=== PATIENT | female | born 1970 | race Caucasian/White ===

== ENCOUNTER → 2016-10-30 | Outpatient (CLI) | payer BC ==
[~2016-10-30] MED LIST: LORT5TAB PO; MOTRIN PO
--- NOTE | 2016-10-30 13:10 | REPMRS ---
Patient History The patient states she has not had a clinical breast exam in over a year. Family history of breast cancer in mother at age 57 and breast cancer in mother at age 60. Silicone gel implants in both breasts, 2010.Patient has had a 30 pound weight gain due to lupus. Digital Mammo Screening Bilat: October 30, 2016 - Exam #: [id number] Bilateral CC and MLO view(s) were taken. Technologist: Sagrario Frazier, Technologist Prior study comparison: 2015, digital bilateral screening mammo, performed at [facility]. January 03, 2013, bilateral digital mammo screening bilat performed at [facility]. April 20, 2009, bilateral digital mammo screening bilat performed at [facility]. FINDINGS: There are scattered fibroglandular densities. There has been no change in the appearance of the mammogram from the prior studies. There is a mild amount of residual fibroglandular tissue which is fairly symmetric. There is no interval development of dominant mass, architectural distortion, or clustered microcalcification suggestive of malignancy. ASSESSMENT: BI-RADS/ACR category 1 mammogram. Negative. Recommendation Routine screening mammogram in 1 year (for women over age 40). This mammogram was interpreted with the aid of an FDA-approved computer-aided dectection system. Electronically Signed By: Rolly Dempsey MD 10/30/16 [id number]
== END ==
LOC: M RAD 11:48
PROVIDERS: ATTEND Nurse Practitioner Family
DX: Z12.31 Encounter for screening mammogram for malignant neoplasm of breast (principal)

== ENCOUNTER 2016-12-28 07:32 | Emergency (ER) | payer BC ==
[~2016-12-28] VITALS: Ht 149.9 cm; Wt 69.1 kg
[2016-12-28] MEDS ORDERED: FAMOTIDINE INJ 20MG/2ML VIAL (S0028) IVP ONE (08:00)
[2016-12-28] MEDS ORDERED: dexameTHASONE 20 MG/5 ML VIAL (J1100) IV ONE (08:00)
[2016-12-28] MEDS ORDERED: diphenhydrAMINE INJ 50MG/ML VIAL (J1200) IV ONE ×2 (08:00→12:30)
[2016-12-28] MEDS ORDERED: ONDANSETRON 4MG/2ML VIAL (J2405) IV ONE ×2 (08:00→12:30)
[2016-12-28 08:14] LABS: BASO # 0.1 10^3/uL (0.0-0.2); BASO % 0.9 % (0.0-1.0); EOS # 0.2 10^3/uL (0.0-0.50); EOS % 2.9 % (0.0-3.0); IMMATURE GRANULOCYTE % 0.3 % (0-0); LYMPH # 2.1 10^3/uL (1.5-4.5); LYMPH % 29.6 % (24.0-44.0); MEAN CORPUSCULAR HEMOGLOBIN 27.7 pg (27.0-33.0); MEAN CORPUSCULAR HGB CONC 32.8 g/dl (32.0-36.5); MEAN CORPUSCULAR VOLUME 84.4 fl (80.0-96.0); MONO # 0.5 10^3/uL (0.0-0.8); MONO % 6.6 % (0.0-5.0); NEUTROPHILS # 4.1 10^3/uL (1.8-7.7); NEUTROPHILS % 59.7 % (36.0-66.0); PLATELET COUNT, AUTOMATED 239 10^3/uL (150-450); WHITE BLOOD COUNT 6.9 10^3/uL (4.0-10.0)
[2016-12-28 08:28] LABS: ALBUMIN 3.6 GM/DL (3.2-5.2); ALKALINE PHOSPHATASE 55 U/L (45-117); ALT/SGPT 33 U/L (12-78); ANION GAP 8 MEQ/L (8-16); AST/SGOT 21 U/L (15-37); BILIRUBIN,DIRECT < 0.1 MG/DL (0.0-0.2); BILIRUBIN,TOTAL 0.2 MG/DL (0.2-1.0); BLOOD UREA NITROGEN 15 MG/DL (7-18); CALCIUM LEVEL 8.8 MG/DL (8.5-10.1); CARBON DIOXIDE LEVEL 27 MEQ/L (21-32); CHLORIDE LEVEL 104 MEQ/L (98-107); COMPLEMENT C4 23.2 MG/DL (10-40); CREATININE FOR GFR 1.05 MG/DL (0.55-1.02); GLOMERULAR FILTRATION RATE > 60.0 (>58); GLUCOSE, FASTING 105 MG/DL (70-105); POTASSIUM SERUM 3.5 MEQ/L (3.5-5.1); SODIUM LEVEL 139 MEQ/L (136-145); T UPTAKE 34 % (30-39); THYROXINE (T4) 11.7 UG/DL (4.5-12.0); TOTAL PROTEIN 7.2 GM/DL (6.4-8.2)
[2016-12-28 08:30] LABS: ADD MORPHOLOGY? YES
[2016-12-28 09:28] LABS: ERYTHROCYTE SEDIMENTATION RATE 7 mm/hr (0-20)
[2016-12-28] MEDS ORDERED: FIORICET TAB PO ONE (12:15)
[2016-12-28 14:45] VITALS: BP 111/64
== END 2016-12-28 14:48 | disposition home or self-care (01) ==
LOC: M ED 07:32
DX: T78.3XXA Angioneurotic edema, initial encounter (principal); M32.9 Systemic lupus erythematosus, unspecified; Z79.899 Other long term (current) drug therapy; Z88.1 Allergy status to other antibiotic agents; Z88.5 Allergy status to narcotic agent; Z91.040 Latex allergy status; Z88.8 Allergy status to other drugs, medicaments and biological substances; Z82.49 Family history of ischemic heart disease and other diseases of the circulatory system
CPT/HCPCS: 36415; 80048; 80076; 84436; 84443; 84479; 85025; 85652; 86140; 86160; 96374; 96375; 99285; J1100; J1200; J2405

== ENCOUNTER → 2017-03-28 | Outpatient (CLI) | payer BC ==
[2017-03-28 09:56] LABS: ANION GAP 7 MEQ/L (8-16); BLOOD UREA NITROGEN 14 MG/DL (7-18); CALCIUM LEVEL 8.2 MG/DL (8.5-10.1); CARBON DIOXIDE LEVEL 27 MEQ/L (21-32); CHLORIDE LEVEL 105 MEQ/L (98-107); CREATININE FOR GFR 1.03 MG/DL (0.55-1.02); GLOMERULAR FILTRATION RATE > 60.0 (>58); GLUCOSE, FASTING 82 MG/DL (70-105); SODIUM LEVEL 139 MEQ/L (136-145)
== END ==
LOC: M WUC 08:21
DX: R60.0 Localized edema (principal)
CPT/HCPCS: 80048

== ENCOUNTER 2017-04-05 05:19 | Observation (INO) | payer BC ==
[2017-04-05 05:59] LABS: BASO % 0.4 % (0.0-1.0); EOS % 0.3 % (0.0-3.0); HEMATOCRIT 43.4 % (36.0-47.0); HEMOGLOBIN 14.9 g/dl (12.0-16.0); IMMATURE GRANULOCYTE % 0.4 % (0-0); LYMPH # 1.7 10^3/uL (1.5-4.5); LYMPH % 18.7 % (24.0-44.0); MEAN CORPUSCULAR HEMOGLOBIN 27.2 pg (27.0-33.0); MEAN CORPUSCULAR HGB CONC 34.3 g/dl (32.0-36.5); MEAN CORPUSCULAR VOLUME 79.2 fl (80.0-96.0); MONO # 0.5 10^3/uL (0.0-0.8); MONO % 4.9 % (0.0-5.0); NEUTROPHILS # 6.9 10^3/uL (1.8-7.7); NEUTROPHILS % 75.3 % (36.0-66.0); PLATELET COUNT, AUTOMATED 292 10^3/uL (150-450); RED BLOOD COUNT 5.48 10^6/uL (4.00-5.40); RED CELL DISTRIBUTION WIDTH 11.9 % (11.5-14.5); WHITE BLOOD COUNT 9.1 10^3/uL (4.0-10.0)
[2017-04-05 06:15] LABS: INR 0.96; PARTIAL THROMBOPLASTIN TIME 25.6 SECONDS (26.8-37.9); PROTHROMBIN TIME 12.9 SECONDS (12.4-14.5)
[2017-04-05 06:20] LABS: PHOSPHORUS LEVEL 1.7 MG/DL (2.5-4.9)
[2017-04-05 06:20] LABS: MAGNESIUM LEVEL 2.4 MG/DL (1.8-2.4)
[2017-04-05 06:26] LABS: ANION GAP 11 MEQ/L (8-16); BLOOD UREA NITROGEN 11 MG/DL (7-18); CALCIUM LEVEL 9.9 MG/DL (8.5-10.1); CARBON DIOXIDE LEVEL 27 MEQ/L (21-32); CHLORIDE LEVEL 100 MEQ/L (98-107); CPK CREATINE PHOSPHOKINASE 220 U/L (26-192); FREE T4 1.21 NG/DL (0.76-1.46); GLOMERULAR FILTRATION RATE > 60.0 (>58); GLUCOSE, FASTING 114 MG/DL (70-105); MB/CK RELATIVE INDEX 0.45 (< OR =4); POTASSIUM SERUM 3.3 MEQ/L (3.5-5.1); SODIUM LEVEL 138 MEQ/L (136-145); TROPONIN I < 0.02 NG/ML (< 0.10)
[2017-04-05] MEDS ORDERED: ONDANSETRON 4MG/2ML VIAL (J2405) As Ordered ×2 (06:36)
[2017-04-05] MEDS: POTASSIUM CHLORIDE 10 MEQ SR TABLET PO ×4 (06:45→18:48)
[2017-04-05] MEDS: ONDANSETRON 4MG/2ML VIAL (J2405) IV ×2 (06:45)
[2017-04-05] MEDS: NEUTRA-PHOS 1.25 GM PACKET PO ×2 (06:45)
[2017-04-05] MEDS: MORPHINE 4 MG/ML 1ML SYRINGE IV ×2 (06:45)
[2017-04-05] MEDS ORDERED: ISOVUE-370 76% 100ML VIAL (Q9967) As Ordered ×2 (06:47)
[2017-04-05] MEDS: NS 1,000 ML IV ×6 (07:21→20:30)
[2017-04-05] MEDS: LORazepam 2 MG/ML VIAL (J2060) IV ×2 (07:21)
[2017-04-05] MEDS ORDERED: GI COCKTAIL 50ML BTL(HYOSCYAMINE/MAALOX/LIDOCAINE VISCOUS)(1:3:1) PO ×2 (08:15)
[2017-04-05] MEDS ORDERED: ACETAMINOPHEN TAB 650MG DOSE (2X325MG) PO ×2 (08:15)
[2017-04-05] MEDS ORDERED: ALPRAZolam 0.25 MG TAB PO ×2 (08:15)
[2017-04-05] MEDS ORDERED: ONDANSETRON 4MG/2ML VIAL (J2405) IV ×2 (08:15)
[2017-04-05] MEDS ORDERED: BISACODYL 5 MG TAB PO ×2 (08:15)
[2017-04-05] MEDS ORDERED: MORPHINE 2 MG/ML 1ML SYRINGE IV ×2 (08:15)
[2017-04-05 08:19] LABS: C REACTIVE PROTEIN QUANTITATIV < 0.30 MG/DL (0.00-0.30)
[2017-04-05 08:34] LABS: COMPLEMENT C3 108 MG/DL (90-180); COMPLEMENT C4 25.4 MG/DL (10-40)
[2017-04-05 08:47] LABS: ERYTHROCYTE SEDIMENTATION RATE 5 mm/hr (0-20)
[2017-04-05] MEDS ORDERED: OMEPRAZOLE 20 MG CAP PO ×2 (09:00)
[2017-04-05] MEDS: PANTOPRAZOLE 40MG TAB (PROTONIX) PO ×2 (09:10)
[2017-04-05] MEDS: GI COCKTAIL 50ML BTL(HYOSCYAMINE/MAALOX/LIDOCAINE VISCOUS)(1:3:1) PO ×2 (09:10)
[2017-04-05] MEDS: predniSONE 20 MG TAB PO ×2 (09:10)
[2017-04-05] MEDS: KETOROLAC 30 MG/ML VIAL (J1885) IV ×2 (09:11)
[2017-04-05] MEDS: FERROUS SULFATE 325MG TAB PO ×2 (10:18)
[2017-04-05] MEDS: ACETAMINOPHEN 500 MG TAB PO ×6 (10:18→23:31)
[2017-04-05] MEDS: SERTRALINE 100 MG TAB PO ×2 (10:18)
[2017-04-05] MEDS: HYDROXYCHLOROQUINE 200 MG TAB PO ×2 (10:19)
[2017-04-05] MEDS ORDERED: NITROGLYCERIN 0.4 MG SUBL TABLET SL ×2 (11:00)
[2017-04-05] MEDS ORDERED: IPRATROPIUM 0.5MG/ALBUTEROL 2.5MG INH SOL UD 3ML (DUONEB)(J7620) NEB ×2 (11:00)
[2017-04-05] MEDS: NITROGLYCERIN 0.4 MG SUBL TABLET SL ×2 (11:16)
[2017-04-05] MEDS: IPRATROPIUM 0.5MG/ALBUTEROL 2.5MG INH SOL UD 3ML (DUONEB)(J7620) NEB ×2 (11:46)
[2017-04-05] MEDS: SUCRALFATE SUSP 1GM/10ML UD PO ×6 (12:00→21:00)
[2017-04-05 12:31] LABS: CPK CREATINE PHOSPHOKINASE 164 U/L (26-192); TROPONIN I < 0.02 NG/ML (< 0.10)
[2017-04-05] MEDS ORDERED: KETOROLAC 30 MG/ML VIAL (J1885) IV ×2 (15:00)
[2017-04-05 18:14] LABS: POTASSIUM SERUM 3.4 MEQ/L (3.5-5.1)
[2017-04-05 18:23] LABS: CPK CREATINE PHOSPHOKINASE 145 U/L (26-192); MB/CK RELATIVE INDEX 0.68 (< OR =4); TROPONIN I < 0.02 NG/ML (< 0.10)
[2017-04-05] MEDS: traZODone 50 MG TAB PO ×2 (23:31)
[2017-04-06 00:36] LABS: CPK CREATINE PHOSPHOKINASE 132 U/L (26-192); MB/CK RELATIVE INDEX 0.75 (< OR =4); TROPONIN I < 0.02 NG/ML (< 0.10)
[2017-04-06 05:40] LABS: BASO % 0.3 % (0.0-1.0); EOS % 0.3 % (0.0-3.0); HEMATOCRIT 35.6 % (36.0-47.0); IMMATURE GRANULOCYTE # 0.1 10^3/uL (0-0); IMMATURE GRANULOCYTE % 0.6 % (0-0); LYMPH # 1.2 10^3/uL (1.5-4.5); LYMPH % 14.5 % (24.0-44.0); MEAN CORPUSCULAR HEMOGLOBIN 26.8 pg (27.0-33.0); MEAN CORPUSCULAR HGB CONC 32.6 g/dl (32.0-36.5); MEAN CORPUSCULAR VOLUME 82.2 fl (80.0-96.0); MONO # 0.5 10^3/uL (0.0-0.8); MONO % 6.7 % (0.0-5.0); NEUTROPHILS # 6.2 10^3/uL (1.8-7.7); NEUTROPHILS % 77.6 % (36.0-66.0); PLATELET COUNT, AUTOMATED 229 10^3/uL (150-450); RED BLOOD COUNT 4.33 10^6/uL (4.00-5.40); RED CELL DISTRIBUTION WIDTH 12.4 % (11.5-14.5); WHITE BLOOD COUNT 7.9 10^3/uL (4.0-10.0)
[2017-04-06 05:49] LABS: HEMOGLOBIN 11.6 g/dl (12.0-16.0)
[2017-04-06 06:04] LABS: ANION GAP 6 MEQ/L (8-16); BLOOD UREA NITROGEN 8 MG/DL (7-18); CALCIUM LEVEL 8.1 MG/DL (8.5-10.1); CARBON DIOXIDE LEVEL 27 MEQ/L (21-32); CHLORIDE LEVEL 111 MEQ/L (98-107); CHOLESTEROL LEVEL 101 MG/DL (<200); CHOLESTEROL RISK RATIO 1.771 (<5); CREATININE FOR GFR 0.88 MG/DL (0.55-1.02); GLOMERULAR FILTRATION RATE > 60.0 (>58); GLUCOSE, FASTING 128 MG/DL (70-105); HDL CHOLESTEROL 57 MG/DL (>40); LDL CHOLESTEROL 34.2 MG/DL (<100); MAGNESIUM LEVEL 2.3 MG/DL (1.8-2.4); NON-HDL-C 44 MG/DL; POTASSIUM SERUM 3.7 MEQ/L (3.5-5.1); SODIUM LEVEL 144 MEQ/L (136-145); TRIGLYCERIDES LEVEL 49 MG/DL (<150)
[2017-04-06] MEDS: PERCOCET 5MG/325MG TAB PO ×2 (06:45)
[2017-04-06] MEDS: NS 500 ML IV ×2 (07:30)
[2017-04-06] MEDS: SERTRALINE 100 MG TAB PO ×2 (08:27)
[2017-04-06] MEDS: FERROUS SULFATE 325MG TAB PO ×2 (08:27)
[2017-04-06] MEDS: ACETAMINOPHEN 500 MG TAB PO ×2 (08:27)
[2017-04-06] MEDS: ASPIRIN 81 MG CHEW TABLET PO ×2 (08:27)
[2017-04-06] MEDS: SUCRALFATE SUSP 1GM/10ML UD PO ×2 (08:27)
[2017-04-06] MEDS: predniSONE 20 MG TAB PO ×2 (08:28)
[2017-04-06] MEDS: HYDROXYCHLOROQUINE 200 MG TAB PO ×2 (09:00)
[2017-04-06] MEDS ORDERED: predniSONE 20 MG TAB PO ×2 (09:00)
[2017-04-07 00:10] LABS: ANTI DOUBLE STRAND-DNA AB 33 IU/mL (0-9); COMPLEMENT TOTAL (CH50) 54 U/mL (42-60); RNP ANTIBODY < 0.2 AI (0.0-0.9); SMITHS ANTIBODY < 0.2 AI (0.0-0.9)
[2017-04-09] MEDS ORDERED: predniSONE 10 MG TAB PO ×2 (09:00)
[2017-04-12] MEDS ORDERED: predniSONE 20 MG TAB PO ×2 (09:00)
[2017-04-15] MEDS ORDERED: predniSONE 10 MG TAB PO ×2 (09:00)
== END 2017-04-06 10:00 | disposition home or self-care (01) ==
LOC: M ED 05:19 → M ED INP 08:04 → M PCU 14:33
DX: R07.89 Other chest pain (principal); R94.31 Abnormal electrocardiogram [ECG] [EKG]; M32.9 Systemic lupus erythematosus, unspecified; E55.9 Vitamin D deficiency, unspecified; E61.1 Iron deficiency; G47.00 Insomnia, unspecified; F32.9 Major depressive disorder, single episode, unspecified; R06.02 Shortness of breath; E87.6 Hypokalemia; Z98.84 Bariatric surgery status; B02.39 Other herpes zoster eye disease; Z86.19 Personal history of other infectious and parasitic diseases; Z86.69 Personal history of other diseases of the nervous system and sense organs; Z88.0 Allergy status to penicillin; Z88.8 Allergy status to other drugs, medicaments and biological substances; Z91.040 Latex allergy status; Z79.899 Other long term (current) drug therapy
CPT/HCPCS: 96375

== ENCOUNTER → 2017-12-04 | Outpatient (CLI) | payer MEDICAID ==
[2017-12-04 17:49] LABS: BASO # 0.1 10^3/uL (0.0-0.2); BASO % 0.8 % (0.0-1.0); EOS % 0.3 % (0.0-3.0); HEMATOCRIT 41.3 % (36.0-47.0); HEMOGLOBIN 13.6 g/dl (12.0-15.5); IMMATURE GRANULOCYTE % 0.6 % (0-3.0); LYMPH # 0.8 10^3/uL (1.5-4.5); LYMPH % 11.6 % (24.0-44.0); MEAN CORPUSCULAR HGB CONC 32.9 g/dl (32.0-36.5); MEAN CORPUSCULAR VOLUME 82.1 fl (80.0-96.0); MONO # 0.1 10^3/uL (0.0-0.8); MONO % 1.5 % (0.0-5.0); NEUTROPHILS # 5.7 10^3/uL (1.8-7.7); NEUTROPHILS % 85.2 % (36.0-66.0); PLATELET COUNT, AUTOMATED 268 10^3/uL (150-450); RED BLOOD COUNT 5.03 10^6/uL (4.00-5.40); RED CELL DISTRIBUTION WIDTH 12.5 % (11.5-14.5); WHITE BLOOD COUNT 6.6 10^3/uL (4.0-10.0)
[2017-12-04 18:18] LABS: ALBUMIN 3.6 GM/DL (3.2-5.2); ALKALINE PHOSPHATASE 53 U/L (45-117); ALT/SGPT 26 U/L (12-78); ANION GAP 6 MEQ/L (8-16); AST/SGOT 17 U/L (7-37); BILIRUBIN,TOTAL 0.2 MG/DL (0.2-1.0); BLOOD UREA NITROGEN 11 MG/DL (7-18); CALCIUM LEVEL 8.4 MG/DL (8.5-10.1); CARBON DIOXIDE LEVEL 28 MEQ/L (21-32); CHLORIDE LEVEL 109 MEQ/L (98-107); CREATININE FOR GFR 0.86 MG/DL (0.55-1.30); FREE T4 0.87 NG/DL (0.76-1.46); GLOMERULAR FILTRATION RATE > 60.0 (>58); GLUCOSE, FASTING 102 MG/DL (70-100); IRON (FE) 69 UG/DL (50-170); MAGNESIUM LEVEL 2.1 MG/DL (1.8-2.4); POTASSIUM SERUM 4.1 MEQ/L (3.5-5.1); SODIUM LEVEL 143 MEQ/L (136-145)
[2017-12-04 20:15] LABS: ALBUMIN/GLOBULIN RATIO 1.06 (1.00-1.93)
== END ==
LOC: M LAB 16:37
DX: R69 Illness, unspecified (principal); E56.9 Vitamin deficiency, unspecified
CPT/HCPCS: 83540

== ENCOUNTER → 2017-12-13 | Outpatient (REF) | payer MEDICAID ==
[2017-12-13 13:58] LABS: BASO # 0.1 10^3/uL (0.0-0.2); EOS # 0.1 10^3/uL (0.0-0.50); EOS % 1.9 % (0.0-3.0); HEMATOCRIT 42.4 % (36.0-47.0); HEMOGLOBIN 13.2 g/dl (12.0-15.5); IMMATURE GRANULOCYTE % 0.7 % (0-3.0); LYMPH # 1.6 10^3/uL (1.5-4.5); LYMPH % 26.7 % (24.0-44.0); MEAN CORPUSCULAR HEMOGLOBIN 26.6 pg (27.0-33.0); MEAN CORPUSCULAR HGB CONC 31.1 g/dl (32.0-36.5); MEAN CORPUSCULAR VOLUME 85.5 fl (80.0-96.0); MONO # 0.5 10^3/uL (0.0-0.8); NEUTROPHILS # 3.7 10^3/uL (1.8-7.7); NEUTROPHILS % 61.7 % (36.0-66.0); PLATELET COUNT, AUTOMATED 214 10^3/uL (150-450); RED BLOOD COUNT 4.96 10^6/uL (4.00-5.40); RED CELL DISTRIBUTION WIDTH 12.7 % (11.5-14.5); WHITE BLOOD COUNT 5.9 10^3/uL (4.0-10.0)
[2017-12-13 14:05] LABS: BACTERIA, URINE AUTO 1+ (NEGATIVE); MUCUS, URINE SMALL (NEGATIVE); RBC, URINE AUTO 0 /HPF (0-3); SQUAMOUS EPITHELIAL CELL UR AU 0 /HPF (0-6); WBC, URINE AUTO 0 /HPF (0-3)
[2017-12-13 15:21] LABS: ERYTHROCYTE SEDIMENTATION RATE 5 mm/hr (0-20)
[2017-12-13 15:23] LABS: ALBUMIN 3.8 GM/DL (3.2-5.2); ALBUMIN/GLOBULIN RATIO 1.19 (1.00-1.93); ALKALINE PHOSPHATASE 55 U/L (45-117); ALT/SGPT 29 U/L (12-78); ANION GAP 8 MEQ/L (8-16); AST/SGOT 17 U/L (7-37); BILIRUBIN,TOTAL 0.3 MG/DL (0.2-1.0); BLOOD UREA NITROGEN 15 MG/DL (7-18); C REACTIVE PROTEIN QUANTITATIV < 0.30 MG/DL (0.00-0.30); CALCIUM LEVEL 9.1 MG/DL (8.5-10.1); CARBON DIOXIDE LEVEL 28 MEQ/L (21-32); CHLORIDE LEVEL 105 MEQ/L (98-107); COMPLEMENT C3 101 MG/DL (90-180); CREATININE FOR GFR 1.06 MG/DL (0.55-1.30); GLOMERULAR FILTRATION RATE 59.4 (>58); GLUCOSE, FASTING 76 MG/DL (70-100); POTASSIUM SERUM 3.8 MEQ/L (3.5-5.1); SODIUM LEVEL 141 MEQ/L (136-145)
[2017-12-14 14:15] LABS: ANTI DOUBLE STRAND-DNA AB 28 IU/mL (0-9)
== END ==
LOC: M LABDRAW1 13:21
DX: M32.9 Systemic lupus erythematosus, unspecified (principal)

== ENCOUNTER → 2018-04-23 | Outpatient (CLI) | payer OTHER ==
[~2018-04-23] MED LIST changes: +ASPI81TA85 PO; +DRIS50003 PO; +FERR1TAB8 PO; +HYDR200T3 PO; +IBUP200C25 PO; +MAALSUS PO; +NITR0.4S14 SL; +PRED10TA2 PO; +PRIL20CA9 PO; +SERT-138 PO; +SUCR1TA PO; +TRAZ-160 PO
[2018-04-23 12:25] LABS: BASO # 0.1 10^3/uL (0.0-0.2); BASO % 1.1 % (0.0-1.0); EOS # 0.2 10^3/uL (0.0-0.50); EOS % 3.9 % (0.0-3.0); HEMATOCRIT 44.6 % (36.0-47.0); HEMOGLOBIN 13.9 g/dl (12.0-15.5); LYMPH # 1.7 10^3/uL (1.5-4.5); LYMPH % 30.2 % (24.0-44.0); MEAN CORPUSCULAR HEMOGLOBIN 26.1 pg (27.0-33.0); MEAN CORPUSCULAR HGB CONC 31.2 g/dl (32.0-36.5); MEAN CORPUSCULAR VOLUME 83.8 fl (80.0-96.0); MONO # 0.4 10^3/uL (0.0-0.8); MONO % 6.8 % (0.0-5.0); NEUTROPHILS # 3.3 10^3/uL (1.8-7.7); NEUTROPHILS % 57.5 % (36.0-66.0); PLATELET COUNT, AUTOMATED 248 10^3/uL (150-450); RED BLOOD COUNT 5.32 10^6/uL (4.00-5.40); WHITE BLOOD COUNT 5.7 10^3/uL (4.0-10.0)
== END ==
LOC: M WUC 10:32
PROVIDERS: ATTEND Internal Medicine
DX: M32.9 Systemic lupus erythematosus, unspecified (principal)

== ENCOUNTER → 2018-06-07 | Outpatient (REF) | payer OTHER ==
[2018-06-08 19:03] LABS: APPEARANCE, URINE CLEAR (CLEAR); BACTERIA, URINE AUTO NEGATIVE (NEGATIVE); BILIRUBIN, URINE AUTO NEGATIVE (NEGATIVE); BLOOD, URINE BLOOD NEGATIVE (NEGATIVE); COLOR, URINE STRAW (YELLOW); CREATININE,RANDOM URINE 48.9 MG/DL; GLUCOSE, URINE (UA) AUTO NEGATIVE (NEGATIVE); KETONE, URINE AUTO NEGATIVE (NEGATIVE); LEUKOCYTE ESTERASE, URINE AUTO NEGATIVE (NEGATIVE); NITRITE, URINE AUTO NEGATIVE (NEGATIVE); PROTEIN, URINE AUTO NEGATIVE (NEGATIVE); RBC, URINE AUTO 1 /HPF (0-3); SPECIFIC GRAVITY URINE AUTO 1.008 (1.002-1.035); SQUAMOUS EPITHELIAL CELL UR AU 1 /HPF (0-6); TOTAL PROTEIN,RANDOM URINE 6.1 MG/DL (0.0-12.0); UROBILINOGEN, URINE AUTO 0.2 mg/dL (0.0-2.0); WBC, URINE AUTO 0 /HPF (0-3)
== END ==
LOC: M SFHCRHEU 12:38
PROVIDERS: ATTEND Internal Medicine
DX: Z79.890 Hormone replacement therapy (principal); M19.90 Unspecified osteoarthritis, unspecified site

== ENCOUNTER → 2018-06-12 | Outpatient (REF) | payer OTHER ==
[2018-06-18 12:05] LABS: HPV HYBRID CAPTURE II Negative (Negative)
== END ==
LOC: M LAB REF 13:44
PROVIDERS: ATTEND Advanced Practice Midwife
DX: Z12.72 Encounter for screening for malignant neoplasm of vagina (principal); Z11.51 Encounter for screening for human papillomavirus (HPV)

== ENCOUNTER → 2018-06-12 | Outpatient (REF) | payer OTHER ==
[2018-06-12 18:36] LABS: ALBUMIN 3.9 GM/DL (3.2-5.2); BILIRUBIN,TOTAL 0.4 MG/DL (0.2-1.0); CALCIUM LEVEL 8.9 MG/DL (8.5-10.1); CREATININE FOR GFR 1.08 MG/DL (0.55-1.30); FREE T4 1.09 NG/DL (0.76-1.46); GLOMERULAR FILTRATION RATE 57.9 (>58); POTASSIUM SERUM 4.2 MEQ/L (3.5-5.1); THYROID STIMULATING HORMONE 2.8 uIU/ML (0.358-3.740); TOTAL PROTEIN 7.2 GM/DL (6.4-8.2)
== END ==
LOC: M LABDRAW1 17:58
PROVIDERS: ATTEND Advanced Practice Midwife
DX: Z01.419 Encounter for gynecological examination (general) (routine) without abnormal findings (principal)

== ENCOUNTER → 2018-12-23 | Outpatient (CLI) | payer OTHER ==
[~2018-12-23] MED LIST changes: -TRAZ-160 PO; +TRAZ-252 PO
[2018-12-23 14:27] LABS: ALBUMIN 3.6 GM/DL (3.2-5.2); ALT/SGPT 26 U/L (12-78); BILIRUBIN,TOTAL 0.4 MG/DL (0.2-1.0); BLOOD UREA NITROGEN 14 MG/DL (7-18); CALCIUM LEVEL 8.5 MG/DL (8.5-10.1); CARBON DIOXIDE LEVEL 24 MEQ/L (21-32); CHLORIDE LEVEL 109 MEQ/L (98-107); CREATININE FOR GFR 0.93 MG/DL (0.55-1.30); GLOMERULAR FILTRATION RATE > 60.0 (>58); GLUCOSE, FASTING 60 MG/DL (70-100); POTASSIUM SERUM 4.1 MEQ/L (3.5-5.1); SODIUM LEVEL 141 MEQ/L (136-145)
== END ==
LOC: M WUC 11:29
PROVIDERS: ATTEND Internal Medicine
DX: M32.9 Systemic lupus erythematosus, unspecified (principal)

== ENCOUNTER 2019-04-10 15:24 | Day surgery (SDC) | payer OTHER ==
[~2019-04-10] VITALS: Ht 154.9 cm; Wt 77.6 kg
[~2019-04-10 15:24] MED LIST changes: -DEXTROAMP; -GABA-843; -LITH150C; -ONDA-83; -OXYC1TAB23 PO; -QUET5TAB; -RIZA5TAB
[2019-04-10] MEDS ORDERED: DEXTROAMP (15:51)
[2019-04-10] MEDS ORDERED: RIZA5TAB (15:51)
[2019-04-10] MEDS ORDERED: ONDA-83 (15:51)
[2019-04-10] MEDS ORDERED: QUET5TAB (15:51)
[2019-04-10] MEDS ORDERED: LITH150C (15:51)
[2019-04-10] MEDS ORDERED: GABA-843 (15:51)
[2019-04-10] MEDS ORDERED: BUPIVACAINE HCL 0.25% 30 ML VIAL As Ordered ONE (16:09)
[2019-04-10] MEDS ORDERED: MORPHINE 4 MG/ML 1ML VIAL/SYRINGE (J2270) As Ordered ONE (16:54)
[2019-04-10] MEDS ORDERED: MORPHINE 4 MG/ML 1ML VIAL/SYRINGE (J2270) IV ONE (17:00)
[2019-04-10] MEDS ORDERED: LIDOCAINE 2% INJ 100 MG/5 ML SDV (FOR ANES.) As Ordered ONE (19:15)
[2019-04-10] MEDS ORDERED: ROCURONIUM BROMIDE 50 MG/5 ML VIAL As Ordered ONE (19:15)
[2019-04-10] MEDS ORDERED: ACETAMINOPHEN 1000MG 100ML IV BTL (OFIRMEV) (J0131 PER 10MG) As Ordered ONE (19:15)
[2019-04-10] MEDS ORDERED: SUGAMMADEX SODIUM 500 MG/5 ML VIAL (BRIDION) As Ordered ONE (19:15)
[2019-04-10] MEDS ORDERED: propofoL 200 MG/20 ML VIAL As Ordered ONE (19:15)
[2019-04-10] MEDS ORDERED: dexameTHASONE 4 MG/ML 1ML VIAL (J1100) As Ordered ONE (19:15)
[2019-04-10] MEDS ORDERED: ONDANSETRON 4MG/2ML VIAL (J2405) As Ordered ONE (19:15)
[2019-04-10] MEDS ORDERED: fentaNYL 100 MCG/2 ML INJECTION (J3010) As Ordered ONE ×2 (19:15→21:53)
[2019-04-10] MEDS ORDERED: KETOROLAC 60 MG/2 ML VIAL (J1885) As Ordered ONE (19:15)
[2019-04-10] MEDS ORDERED: MIDAZOLAM INJ 2 MG/2 ML VIAL (J2250) As Ordered ONE (19:16)
[2019-04-10] MEDS ORDERED: SCOPOLAMINE 1MG TRANSDERMAL PATCH As Ordered ONE (19:20)
[2019-04-10] MEDS ORDERED: SCOPOLAMINE 1MG TRANSDERMAL PATCH TOP ONE (19:30)
[2019-04-10] MEDS ORDERED: PERCOCET 5MG/325MG TAB As Ordered ONE (21:53)
[2019-04-10] MEDS: fentaNYL 100 MCG/2 ML INJECTION (J3010) IV PRN ×2 (21:55→22:00)
[2019-04-10] MEDS ORDERED: LR 1,000 ML IV SCH ×2 (22:15→23:45)
[2019-04-10] MEDS ORDERED: ONDANSETRON 4MG/2ML VIAL (J2405) IV PRN (22:15)
[2019-04-10] MEDS ORDERED: PERCOCET 5MG/325MG TAB PO PRN ×2 (22:15→23:45)
[2019-04-10] MEDS ORDERED: METOCLOPRAMIDE INJ 10MG/2ML VIAL (J2765) IV PRN (22:15)
[2019-04-10 23:00] VITALS: BP 130/70
[2019-04-10 23:30] VITALS: BP 130/70
[2019-04-11] VITALS: BP 116/79
[2019-04-11 01:00] VITALS: BP 105/57
[2019-04-11 02:00] VITALS: BP 99/56
[2019-04-11] MEDS: PERCOCET 5MG/325MG TAB PO PRN ×2 (05:02)
[2019-04-11 06:00] VITALS: BP 128/58
[2019-04-11] MEDS ORDERED: OXYC1TAB23 PO (07:42)
--- NOTE | 2019-04-11 09:37 | RO ---
DATE OF PROCEDURE: 04/10/2019 PREPROCEDURE DIAGNOSIS: Bilateral ovarian cysts. Pelvic pain. POSTPROCEDURE DIAGNOSIS: Bilateral ovarian cysts. Pelvic pain. PROCEDURE: Laparoscopic bilateral salpingo-oophorectomy. SURGEON: Dr. Fco Sexton. INTERACTIVE MARKETING STRATEGIST: None. ANESTHESIA: General endotracheal ESTIMATED BLOOD LOSS: 10 mL. URINE OUTPUT: 300 mL. FINDINGS: Bilateral ovarian cysts, status post hysterectomy. Normal upper abdomen. DESCRIPTION OF PROCEDURE: The patient taken to the operating room where general endotracheal anesthesia was induced. She was prepped and draped in a sterile fashion in the dorsal lithotomy position. Medina catheter was placed. A sponge stick was placed in the vagina to use as a manipulator. Periumbilical incision made with a scalpel. Veress needle was inserted through the incision while tenting up on the skin of the abdomen. Intra-abdominal location of the Veress needle was assessed using a saline-filled syringe. Pneumoperitoneum was created. The Veress needle was removed. 10 mm trocar using Visiport was inserted through the incision. Two 5 mm suprapubic ports were placed under direct visualization. The patient was placed in Trendelenburg position. Ovarian cysts were identified bilaterally. The right ovary was grasped and elevated. The ureters were identified away from the operative site. LigaSure device was used to coagulate and incise the IP ligament and broad ligament attachments. The same was performed on the left side. Both ovaries and fallopian tubes were placed in an EndoCatch bag and withdrawn through the umbilicus. All instruments were removed. The fascia of the umbilical incision was closed with interrupted suture of 0 Vicryl. The skin was closed with #4-0 Monocryl subcuticular sutures. Sponge, instrument and needle counts were correct. The patient was extubated and went to the recovery room instable condition.
== END 2019-04-11 08:09 | disposition home or self-care (01) ==
LOC: M SDC 15:24
PROVIDERS: ATTEND Specialist
DX: N80.9 Endometriosis, unspecified (principal); N83.01 Follicular cyst of right ovary; N83.202 Unspecified ovarian cyst, left side; R10.2 Pelvic and perineal pain; M32.9 Systemic lupus erythematosus, unspecified; F99 Mental disorder, not otherwise specified; Z98.84 Bariatric surgery status; Z79.899 Other long term (current) drug therapy; Z79.82 Long term (current) use of aspirin; Z88.0 Allergy status to penicillin; Z88.8 Allergy status to other drugs, medicaments and biological substances
CPT/HCPCS: 58661; 88307; J0131; J1100; J1885; J2250; J2270; J2405; J3010

== ENCOUNTER → 2019-04-10 | Outpatient (CLI) | payer OTHER ==
[~2019-04-10] MED LIST changes: +DEXTROAMP; +GABA-843; +LITH150C; +ONDA-83; +OXYC1TAB23 PO; +QUET5TAB; +RIZA5TAB
--- NOTE | 2019-04-11 15:27 | REP ---
Pelvic sonography: History: Pelvic pain. Comparison CT study April 09, 2019. Comparison sonography April 09, 2019. The prior studies showed a complex lesion in the right ovary. Findings: Transabdominal and transvaginal scanning is performed. Uterus is surgically absent. Right ovarian dimensions are 4.4 x 3.2 x 3.7 cm. There is a complex cystic lesion in the right ovary measuring 3.3 x 3.4 x 3.0 cm. The cyst in the right ovary contains medium level internal echoes consistent with proteinaceous material within this cystic lesion. This is unchanged from the April 09, 2019 study. The left ovary measures 4.2 x 2.2 x 2.3 cm. There are multiple cysts in the left ovary the largest of which measures 2.5 cm. Tiny sliver of cul-de-sac fluid is seen. Impression: Complex cystic lesion right ovary again seen. Unchanged from the April 09, 2019 study.
== END ==
LOC: M WHC 09:17
PROVIDERS: ATTEND Advanced Practice Midwife
DX: N83.201 Unspecified ovarian cyst, right side (principal); R10.2 Pelvic and perineal pain

== ENCOUNTER 2019-04-13 18:49 | Emergency (ER) | payer OTHER ==
[~2019-04-13] VITALS: Ht 152.4 cm; Wt 78.2 kg
[~2019-04-13 18:49] MED LIST changes: +DEXTROAMP; +GABA-843; +LITH150C; +ONDA-83; +OXYC1TAB23 PO; +QUET5TAB; +RIZA5TAB
[2019-04-13] MEDS ORDERED: ONDANSETRON 4MG/2ML VIAL (J2405) IV ONE (19:15)
[2019-04-13] MEDS ORDERED: NS 1,000 ML IV ONE (19:15)
[2019-04-13] MEDS ORDERED: MORPHINE 4 MG/ML 1ML VIAL/SYRINGE (J2270) IV ONE (19:15)
[2019-04-13 19:35] LABS: BASO # 0.1 10^3/uL (0.0-0.2); BASO % 1.4 % (0.0-1.0); EOS # 0.4 10^3/uL (0.0-0.5); EOS % 5.4 % (0.0-3.0); HEMATOCRIT 42.3 % (36.0-47.0); HEMOGLOBIN 12.7 g/dl (12.0-15.5); LYMPH # 1.6 10^3/uL (1.5-5.0); LYMPH % 24.4 % (24.0-44.0); MEAN CORPUSCULAR HEMOGLOBIN 25.5 pg (27.0-33.0); MEAN CORPUSCULAR VOLUME 84.9 fl (80.0-96.0); MONO # 0.5 10^3/uL (0.0-0.8); MONO % 7.1 % (0.0-5.0); NEUTROPHILS % 60.9 % (36.0-66.0); PLATELET COUNT, AUTOMATED 265 10^3/uL (150-450); RED BLOOD COUNT 4.98 10^6/uL (4.00-5.40); WHITE BLOOD COUNT 6.6 10^3/uL (4.0-10.0)
[2019-04-13] MEDS ORDERED: ISOVUE-370 76% 100ML VIAL (Q9967) As Ordered ONE (19:38)
--- NOTE | 2019-04-13 21:19 | REPVR ---
PROCEDURE INFORMATION: Exam: CT Abdomen And Pelvis With Contrast Exam date and time: 04/13/2019 7:43 PM Age: 48 years old Clinical indication: Abdominal pain; Generalized; Prior surgery; Surgery date: 3-7 days post-operative; Surgery type: Bilat oophorectomy ; Additional info: Recent jacobo oophrectomy with abd distension and inc pain TECHNIQUE: Imaging protocol: Computed tomography of the abdomen and pelvis with intravenous contrast. Radiation optimization: All CT scans at this facility use at least one of these dose optimization techniques: automated exposure control; mA and/or kV adjustment per patient size (includes targeted exams where dose is matched to clinical indication); or iterative reconstruction. Contrast material: ISOVUE 370; Contrast volume: 100 ml; Contrast route: IV; COMPARISON: CT ABD/PEL W/IV CONTRAST ONLY 2019-04-09 21:39 FINDINGS: Liver: Normal. No mass. Gallbladder and bile ducts: Cholecystectomy clips in the right upper quadrant. There is a mild, expected degree of intrahepatic and common bile duct dilation. Pancreas: Normal. No ductal dilation. Spleen: Normal. No splenomegaly. Adrenals: Normal. No mass. Kidneys and ureters: Normal. No hydronephrosis. Stomach and bowel: Heather-en-Y gastric bypass surgical changes in the left upper abdomen. Constipation. Appendix: No evidence of appendicitis. Intraperitoneal space: Unremarkable. No free air. No significant fluid collection. Vasculature: Unremarkable. No abdominal aortic aneurysm. Lymph nodes: Unremarkable. No enlarged lymph nodes. Bladder: Unremarkable as visualized. Reproductive: Hysterectomy. Bones/joints: Unremarkable. No acute fracture. Soft tissues: Bilateral breast implants. Small umbilical hernia. IMPRESSION: Expected postoperative appearance. No acute finding. Electronically signed by: Braxton Reinoso On 04/13/2019 21:19:33 PM
[2019-04-13 21:22] VITALS: BP 129/59
== END 2019-04-13 21:36 | disposition home or self-care (01) ==
LOC: M ED 18:49
DX: G89.18 Other acute postprocedural pain (principal); R14.0 Abdominal distension (gaseous); M32.9 Systemic lupus erythematosus, unspecified; Z79.52 Long term (current) use of systemic steroids; Z79.899 Other long term (current) drug therapy; Z98.890 Other specified postprocedural states; Z88.0 Allergy status to penicillin; Z88.8 Allergy status to other drugs, medicaments and biological substances; Z91.040 Latex allergy status
CPT/HCPCS: 74177; 80047; 83605; 85025; 96374; 96375; 99284; J2270; J2405; Q9967

== ENCOUNTER 2019-04-16 10:04 | Emergency (ER) | payer OTHER ==
[~2019-04-16] VITALS: Ht 152.4 cm; Wt 80.3 kg
[2019-04-16 11:16] LABS: BASO # 0.1 10^3/uL (0.0-0.2); BASO % 1.4 % (0.0-1.0); EOS # 0.3 10^3/uL (0.0-0.5); EOS % 6.7 % (0.0-3.0); HEMATOCRIT 43.5 % (36.0-47.0); HEMOGLOBIN 12.9 g/dl (12.0-15.5); LYMPH # 1.3 10^3/uL (1.5-5.0); MEAN CORPUSCULAR HEMOGLOBIN 25.4 pg (27.0-33.0); MEAN CORPUSCULAR HGB CONC 29.7 g/dl (32.0-36.5); MEAN CORPUSCULAR VOLUME 85.6 fl (80.0-96.0); MONO # 0.5 10^3/uL (0.0-0.8); MONO % 8.9 % (0.0-5.0); NEUTROPHILS # 2.8 10^3/uL (1.5-8.5); PLATELET COUNT, AUTOMATED 262 10^3/uL (150-450); RED BLOOD COUNT 5.08 10^6/uL (4.00-5.40); WHITE BLOOD COUNT 5.1 10^3/uL (4.0-10.0)
[2019-04-16] MEDS ORDERED: ADDE20TA PO (11:41)
--- NOTE | 2019-04-16 11:42 | REP ---
ABDOMEN FLAT PLATE: 04/16/2019. Comparison: CT abdomen pelvis 04/13/2019. Clinical history: Finding: Single view provided. There are clips in the right upper quadrant from cholecystectomy. Stool and gas are seen scattered in the right, less in the transverse and more on the left colon to rectosigmoid. Gas in small bowel loops noted without dilatation. No evidence for obstruction. There are a few pelvic phleboliths on the right corresponding to findings on the recent CT. Bones without acute finding. Impression: 1. Nonspecific gas pattern with stool and gas scattered throughout the colon, more in the left colon to rectosigmoid. No dilated colon or small bowel loops. 2. A few pelvic phleboliths but no abnormal calcifications are noted. 3. Right upper quadrant surgical clips. 4. This study cannot determine presence of ascites or free fluid. That would require ultrasound or CT. Electronically Signed by Scout Garcia MD 04/16/2019 01:22 P
[2019-04-16] MEDS ORDERED: METOCLOPRAMIDE INJ 10MG/2ML VIAL (J2765) IV ONE (11:45)
[2019-04-16] MEDS ORDERED: MORPHINE 4 MG/ML 1ML VIAL/SYRINGE (J2270) IV ONE (11:45)
[2019-04-16 12:03] LABS: BLOOD UREA NITROGEN 12 MG/DL (7-18); CALCIUM LEVEL 8.6 MG/DL (8.5-10.1); CARBON DIOXIDE LEVEL 28 MEQ/L (21-32); CHLORIDE LEVEL 107 MEQ/L (98-107); CREATININE FOR GFR 0.89 MG/DL (0.55-1.30); GLOMERULAR FILTRATION RATE > 60.0 (>58); GLUCOSE, FASTING 88 MG/DL (70-100); POTASSIUM SERUM 4.1 MEQ/L (3.5-5.1); SODIUM LEVEL 141 MEQ/L (136-145)
[2019-04-16 13:32] VITALS: BP 132/86
== END 2019-04-16 13:59 | disposition home or self-care (01) ==
LOC: M ED 10:04
DX: T81.89XA Other complications of procedures, not elsewhere classified, initial encounter (principal); M32.9 Systemic lupus erythematosus, unspecified; Z79.52 Long term (current) use of systemic steroids; Z79.899 Other long term (current) drug therapy; Z88.0 Allergy status to penicillin; Z88.1 Allergy status to other antibiotic agents; Z88.8 Allergy status to other drugs, medicaments and biological substances; Z91.040 Latex allergy status; Z98.84 Bariatric surgery status
CPT/HCPCS: 74018; 76830; 76857; 80048; 85025; 96374; 96375; 99284; J2270; J2765

== ENCOUNTER → 2020-01-30 | Outpatient (CLI) | payer OTHER ==
[~2020-01-30] MED LIST changes: +ADDE20TA PO; -ASPI81TA85 PO; +ASPI81TA86 PO
[2020-01-31 06:29] LABS: FOLATE 15.6 NG/ML
== END ==
LOC: M WUC 12:26
PROVIDERS: ATTEND Psychiatry & Neurology Neurology
DX: R20.2 Paresthesia of skin (principal); A69.20 Lyme disease, unspecified

== ENCOUNTER → 2020-02-12 | Outpatient (CLI) | payer OTHER | LOC: M LABSMTC 13:36 | PROVIDERS: ATTEND Orthopaedic Surgery | DX: Z01.812 Encounter for preprocedural laboratory examination (principal); Z20.828 Contact with and (suspected) exposure to other viral communicable diseases ==

== ENCOUNTER → 2020-03-05 | Outpatient (CLI) | payer SELFPAY | LOC: M LABSMTC 12:11 | PROVIDERS: ATTEND Pediatrics | DX: Z20.828 Contact with and (suspected) exposure to other viral communicable diseases (principal) ==

== ENCOUNTER → 2020-04-09 | Outpatient (CLI) | payer OTHER ==
[~2020-04-09] MED LIST changes: +ADDE30CA3 PO; +ARIP1TAB4 PO; +CONT1TAB PO; +DOXY100T PO; +FOLI1TAB11 PO; +GABA-282 PO; -GABA-843; +MAXA10TA14 PO; +METH2.5T48 PO; -ONDA-83; +ONDA-83 PO; +QUET50TA3; -QUET5TAB; +TERB250T12 PO; +XIID5DRO OU
[2020-04-09 16:19] LABS: CORTISOL BASELINE 15.1 UG/DL (4.3-22.4); FREE T4 0.86 NG/DL (0.76-1.46); THYROID STIMULATING HORMONE 0.962 uIU/ML (0.358-3.740)
== END ==
LOC: M WUC 14:14
PROVIDERS: ATTEND Advanced Practice Midwife
DX: R63.5 Abnormal weight gain (principal); E66.01 Morbid (severe) obesity due to excess calories

== ENCOUNTER 2020-04-29 12:11 | Observation (INO) | payer OTHER ==
[~2020-04-29] VITALS: Ht 152.4 cm; Wt 38.4 kg
[~2020-04-29 12:11] MED LIST changes: -ADDE30CA3 PO; -ARIP1TAB4 PO; -CONT1TAB PO; -DOXY100T PO; -FOLI1TAB11 PO; -MAXA10TA14 PO; -METH2.5T48 PO; -TERB250T12 PO; -XIID5DRO OU
--- NOTE | 2020-04-29 12:51 | REP ---
INDICATION: neuro symptoms. COMPARISON: None. TECHNIQUE: Helical scanning is acquired. 5 mm axial images were reformatted. Coronal MPR images were generated. FINDINGS: Bone window settings demonstrate an intact bony calvarium. There is no evidence of skull fracture or incidental bony calvarial lesion. The visualized paranasal sinuses appear clear. No intraorbital abnormality is seen. On soft tissue window setting images; the lateral, third, and fourth ventricles are normal in size and position. Dempsey-white differentiation pattern is normal above and below the tentorium. There are is no evidence of intracranial hemorrhage. No mass, edema, infarction, or midline shift is seen. No extra-axial fluid collection is appreciated. IMPRESSION: Negative noncontrast head CT. <Electronically signed by Jatin Ballesteros > 04/29/20 [id number]
[2020-04-29 12:54] LABS: BASO # 0.1 10^3/uL (0.0-0.2); BASO % 0.9 % (0.0-1.0); EOS # 0.2 10^3/uL (0.0-0.5); EOS % 3.1 % (0.0-3.0); HEMATOCRIT 42.4 % (36.0-47.0); HEMOGLOBIN 12.6 g/dl (12.0-15.5); LYMPH # 1.2 10^3/uL (1.5-5.0); LYMPH % 16.9 % (24.0-44.0); MEAN CORPUSCULAR HEMOGLOBIN 23.9 pg (27.0-33.0); MEAN CORPUSCULAR HGB CONC 29.7 g/dl (32.0-36.5); MEAN CORPUSCULAR VOLUME 80.3 fl (80.0-96.0); MONO # 0.5 10^3/uL (0.0-0.8); MONO % 6.9 % (0.0-5.0); NEUTROPHILS # 4.9 10^3/uL (1.5-8.5); NEUTROPHILS % 71.5 % (36.0-66.0); PLATELET COUNT, AUTOMATED 349 10^3/uL (150-450); RED BLOOD COUNT 5.28 10^6/uL (4.00-5.40); WHITE BLOOD COUNT 6.9 10^3/uL (4.0-10.0)
[2020-04-29 13:09] LABS: BLOOD UREA NITROGEN 12 MG/DL (7-18); CALCIUM LEVEL 9.3 MG/DL (8.5-10.1); CARBON DIOXIDE LEVEL 23 MEQ/L (21-32); CHLORIDE LEVEL 105 MEQ/L (98-107); CK-MB VALUE MASS 1.3 NG/ML (<3.6); CPK CREATINE PHOSPHOKINASE 150 U/L (26-192); CREATININE FOR GFR 1.16 MG/DL (0.55-1.30); GLOMERULAR FILTRATION RATE 53.1 (>58); GLUCOSE, FASTING 92 MG/DL (70-100); MB/CK RELATIVE INDEX 0.87 (< OR =4); POTASSIUM SERUM 3.6 MEQ/L (3.5-5.1); SODIUM LEVEL 136 MEQ/L (136-145); TROPONIN I < 0.02 NG/ML (< 0.10)
[2020-04-29] MEDS ORDERED: ASPIRIN 325 MG TAB PO ONE (13:30)
--- NOTE | 2020-04-29 13:31 | REP ---
INDICATION: CVA. COMPARISON: 04/05/2017. TECHNIQUE: SINGLE PORTABLE AP VIEW OF THE CHEST WAS PERFORMED. FINDINGS: THERE IS NO ACUTE INFILTRATE OR PULMONARY EDEMA. LUNGS ARE CLEAR. HEART IS NOT SIGNIFICANTLY ENLARGED. MEDIASTINAL SILHOUETTE IS UNREMARKABLE. THE VISUALIZED OSSEOUS STRUCTURES ARE INTACT. IMPRESSION: NO ACUTE PULMONARY DISEASE. <Electronically signed by Rolly Dempsey > 04/29/20 [id number]
[2020-04-29 13:50] LABS: RSV AMPLIFICATION NEGATIVE (NEGATIVE)
[2020-04-29 13:52] LABS: C REACTIVE PROTEIN QUANTITATIV 4.64 MG/DL (0.00-0.30)
[2020-04-29 14:08] LABS: ERYTHROCYTE SEDIMENTATION RATE 20 mm/hr (0-20)
[2020-04-29] MEDS ORDERED: ARIP1TAB4 PO (14:59)
[2020-04-29] MEDS ORDERED: TRAZ-252 PO (14:59)
[2020-04-29] MEDS ORDERED: XIID5DRO OU (14:59)
[2020-04-29] MEDS ORDERED: FOLI1TAB11 PO (14:59)
[2020-04-29] MEDS ORDERED: CONT1TAB PO (14:59)
[2020-04-29] MEDS ORDERED: MAXA10TA14 PO (14:59)
[2020-04-29] MEDS ORDERED: ADDE30CA3 PO (14:59)
[2020-04-29] MEDS ORDERED: METH2.5T48 PO (14:59)
[2020-04-29] MEDS ORDERED: TERB250T12 PO (14:59)
[2020-04-29] MEDS ORDERED: RIZATRIPTAN BENZOATE 10 MG TAB PO PRN (15:00)
[2020-04-29 15:30] VITALS: BP 173/91
--- NOTE | 2020-04-29 15:31 | HPEPDOC ---
[facility] Medical History & Physical Date of Admission Apr 29, 2020 Date of Service: Apr 29, 2020 History and Physical CHIEF COMPLAINT: Slurred speech, blurred vision, leaning to the right side when walking HISTORY OF PRESENT ILLNESS: 49-year-old female with history of Sjogren's disease, systemic lupus erythematosus with facial malar rash on chronic plaquenil follows with the [facility] . Ophthalmology group presented to the emergency room with complaints of slurred speech, blurred vision and gait ataxia, leaning to the right side. Patient was in her usual state of health until 04/26/2020 after she had her hemorrhoidectomy. The following day she woke up, but her speech was garbled. She thought that it was dry mouth because of her Sjogren's later in the day. She techs that her daughter and was not able to see clear writing on her iPhone. Everything appeared blurry. This was evaluated at [facility] in t afternoon for her routine exam because she's been on Plaquenil. They felt that she needed eyeglasses and was released home. Today at around 12:30 she was speaking with her mom when she felt that her right side of the face was droopy and she had slurred speech. She also complained of dysphagia, feeling that there is a golf ball in her throat and that her pills would not go down. Due to strong family history of multiple sclerosis in her mother and father. Patient had been followed by Dr. Butler at [facility] with no lab prior history of multiple sclerosis documented on MRI in the past. Due to persistent symptoms in time patient decided to come to the ER for further evaluation. Patient had not had any exacerbations of her lupus in the past few years and had been on maintenance therapy with methotrexate, Plaquenil, but since her hemorrhoid surgery. She has held on her benlista for the past 2 weeks. In the emergency room, her glucose was normal. MRI of the brain was ordered. EKG shows sinus rhythm. She was given 1 dose of aspirin 324mg, hospitalist was asked to admit her for further evaluation of slurred speech, gait ataxia, and visual changes. PAST MEDICAL HISTORY: Sjogren's systemic lupus erythematosus malar rash, endometriosis, urethrocele, cystocele, left ankle fracture, rectocele, obesity, status post gastric bypass surgery PAST SURGICAL HISTORY: , Total abdominal hysterectomy secondary to endometriosis gastric bypass surgery, cholecystectomy, left breast lumpectomy, benign. 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 Full code. Denies recreational drug use alcohol or tobacco FAMILY HISTORY: Father CVA multiple sclerosis, Parkinson's disease Mother alive with multiple sclerosis ALLERGIES: Please see below. REVIEW OF SYSTEMS: 12 point review of systems negative aside from positive findings in history of presenting illness HOME MEDICATIONS: Please see below. PHYSICAL EXAMINATION: VITAL SIGNS: See below GENERAL APPEARANCE: Awake, alert, oriented to person, place and time. No respiratory distress, speaks in full sentences. Speech is fluent HEENT: Malar rash, erythema along the nasolabial fold and cheeks Face is symmetric. Tongue is midline. No JVD, thyromegaly. Moist mucous membranes . Neck is supple, full range of motion CARDIOVASCULAR: S1, S2, sinus rhythm LUNGS: Clear to auscultation. Wheezing, rales or rhonchi ABDOMEN: Soft, nontender, nondistended, positive bowel sounds 4 quadrants MUSCULOSKELETAL: 5 out of 5 motor strength 4 extremities. No sensory disturba nce EXTREMITIES: No cyanosis, clubbing or pitting edema. 0.5 cm papule with some erythema noted in the right dorsum of the hand NEUROLOGICAL: Face is symmetric. Tongue is midline. Pupils equally round, reactive to light accommodation. Extra muscles are intact. No dysmetria and finger to nose testing . Motor function is 5 out of 54 extremities. Negative Babinski bilateral lower extremities. No pronator drift. No expressive or receptive aphasia. Speech is fluent . DTRs intact, 2+, hyperaesthetic on right face . LABORATORY DATA: See below. EKG: Sinus rhythm, ventricular rate of 85, SC interval 16.6, QRS 94, QTC 396, QTC 471 IMAGING: CT HEAD WITHOUT CONTRAST INDICATION: neuro symptoms. COMPARISON: None. TECHNIQUE: Helical scanning is acquired. 5 mm axial images were reformatted. Coronal MPR images were generated. FINDINGS: Bone window settings demonstrate an intact bony calvarium. There is no evidence of skull fracture or incidental bony calvarial lesion. The visualized paranasal sinuses appear clear. No intraorbital abnormality is seen. On soft tissue window setting images; the lateral, third, and fourth ventricles are normal in size and position. Dempsey-white differentiation pattern is normal above and below the tentorium. There are is no evidence of intracranial hemorrhage. No mass, edema, infarction, or midline shift is seen. No extra-axial fluid collection is appreciated. IMPRESSION: Negative noncontrast head CT. <Electronically signed by Jatin Ballesteros > 04/29/20 1247 CXR INDICATION: CVA. COMPARISON: 04/05/2017. TECHNIQUE: SINGLE PORTABLE AP VIEW OF THE CHEST WAS PERFORMED. FINDINGS: THERE IS NO ACUTE INFILTRATE OR PULMONARY EDEMA. LUNGS ARE CLEAR. HEART IS NOT SIGNIFICANTLY ENLARGED. MEDIASTINAL SILHOUETTE IS UNREMARKABLE. THE VISUALIZED OSSEOUS STRUCTURES ARE INTACT. IMPRESSION: NO ACUTE PULMONARY DISEASE. <Electronically signed by Rolly Dempsey > 04/29/20 1326 MICROBIOLOGY: Please see below. ASSESSMENT/PLAN: 49-year-old female with history of Sjogren's disease, systemic lupus erythematosus with facial malar rash on chronic plaquenil follows with the [facility] . Ophthalmology group presented to the emergency room with complaints of slurred speech, blurred vision and gait ataxia, leaning to the right side. Patient was in her usual state of health until 04/26/2020 after she had her hemorrhoidectomy. The following day she woke up, but her speech was garbled. She thought that it was dry mouth because of her Sjogren's later in the day. She techs that her daughter and was not able to see clear writing on her iPhone. Everything appeared blurry. This was evaluated at [facility] in the afternoon for her routine exam because she's been on Plaquenil. They felt that she needed eyeglasses and was released home. Today at around 12:30 she was speaking with her mom when she felt that her right side of the face was droopy and she had slurred speech. She also complained of dysphagia, feeling that there is a golf ball in her throat and that her pills would not go down. Due to strong family history of multiple sclerosis in her mother and father. Patient had been followed by Dr. Butler at [facility] with no lab prior history of multiple sclerosis documented on MRI in the past. Due to persistent symptoms in time patient decided to come to the ER for further evaluation. Patient had not had any exacerbations of her lupus in the past few years and had been on maintenance therapy with methotrexate, Plaquenil, but since her hemorrhoid surgery. She has held on her benlista for the past 2 weeks.In the emergency room, her glucose was normal.EKG-sinus MRI of the brain was ordered. EKG shows sinus rhythm. She was given 1 dose of aspirin 324mg, hospitalist was asked to admit her for further evaluation of slurred speech, gait ataxia, and visual changes. Slurred speech, gait abnormality, blurred vision, dysphagia -Patient's symptoms have occurred over several days and she has a strong family history of multiple sclerosis -MRI/MRA of the brain to rule out multiple sclerosis -Patient had been seen at [facility] and previously worked up for MS which was negative -Speech therapist has been consulted to rule out aspiration due to complaints of dysphasia -Patient has been given 1 dose of aspirin -Her neurologic symptoms have improved and she does not appear to have any expressive or receptive aphasia with fluent speechOn admission -Due to prior history of lupus, we'll check inflammatory markers and anti-Can and zwwk-vywnmr-szpuepmn DNA antibodies to check for possible exacerbation. -[facility] group. On the day that she was having changes in vision. She was asked to get eyeglasses as outpatient. -If MRI of the brain is abnormal, we will consult neurology for further management -ARU screen Systemic lupus erythematosus with malar rash -May resume all medications -Check inflammatory mount markers, ESR, CRP, as well as zcmu-kwvkpi-zeoztmao DNA , anti-Can antibody levels to rule out exacerbation -Await MRI of the brain -Patient sees public information relations manager Dr. GONZALEZ at [facility]-. Obtain outpatient records Hypertension, uncontrolled -monitor for now -avoid rosemarie inh since pt had angioedema with lisinopril used initially for nephroprotective effect due to lupus -may use norvasc if needed. Dysphagia -ugi esophagram in am. -speech therapy r/o aspiration. right hand cellulitis -at previous iv site from hemorrhoidectomy on 04/26/20 -no abscess noted -cannot give bactrim due to risk fo renal failure w concomitant use of methotrexate -allergic to pcn, amoxicillin-cannot use keflex -doxycycline x 7days. or clinda but higher risk of c diff infection Sjogrens -resumed meds DVT prophylaxis: compression stockings Diet: speech eval for dysphagia. regular if no signs of aspiration code status: full code. Vital Signs Vital Signs Date Time Temp Pulse Resp B/P (MAP) Pulse Ox O2 Delivery O2 Flow Rate FiO2 04/29/20 13:00 04/29/20 12:12 97.5 100 20 98 Room Air Laboratory Data Labs 24H Laboratory Tests 2 04/29/20 12:29: Immature Granulocyte % (Auto) 0.7, Neutrophils (%) (Auto) 71.5H, Lymphocytes (%) (Auto) 16.9L, Monocytes (%) (Auto) 6.9H, Eosinophils (%) (Auto) 3.1H, Basophils (%) (Auto) 0.9, Neutrophils # (Auto) 4.9, Lymphocytes # (Auto) 1.2L, Monocytes # (Auto) 0.5, Eosinophils # (Auto) 0.2, Basophils # (Auto) 0.1, Nucleated Red Blood Cells % (auto) 0.0, Erythrocyte Sedimentation Rate 20, Activated Partial Thromboplast Time 28.0, Anion Gap 8, Glomerular Filtration Rate 53.1L, Calcium Level 9.3, Total Creatine Kinase 150, Creatine Kinase MB 1.3, Creatine Kinase MB Relative Index 0.87, Troponin I < 0.02, C-Reactive Protein, Quantitative 4.64H 04/29/20 13:02: Coronavirus (COVID-19)(PCR) NEGATIVE, Influenza Type A (RT-PCR) NEGATIVE, Influenza Type B (RT-PCR) NEGATIVE, Respiratory Syncytial Virus (PCR) NEGATIVE CBC/BMP Laboratory Tests 04/29/20 12:29 Home Medications Scheduled Aripiprazole (Aripiprazole) 2 Mg Tablet, 2 MG PO QHS Dextroamphetamine/Amphetamine (Adderall Xr 30 mg Capsule) 30 Mg Cap.er.24h, 30 MG PO DAILY Folic Acid (Folic Acid) 1 Mg Tablet, 1 MG PO QHS Gabapentin (Gabapentin) 300 Mg Capsule, 300 MG PO QHS Hydroxychloroquine Sulfate (Hydroxychloroquine Sulfate) 200 Mg Tab, 400 MG PO QHS Methotrexate Sodium (Methotrexate) 2.5 Mg Tablet, 15 MG PO QWEEK QHS: THURSDAYS Naltrexone HCl/Bupropion HCl (Contrave ER 8-90 mg Tablet) 1 Each Tablet.er, 1 TAB PO QHS Sertraline HCl (Sertraline HCl) 100 Mg Tab, 200 MG PO QHS Terbinafine HCl (Terbinafine HCl) 250 Mg Tablet, 250 MG PO QHS Trazodone HCl (Trazodone HCl) 50 Mg Tablet, 50 MG PO QHS Scheduled PRN Ibuprofen (Ibuprofen) 200 Mg Cap, 600 MG PO Q4H PRN for PAIN Lifitegrast (Xiidra) 5% Droperette, 1 DROP OU BID PRN for DRY EYES Ondansetron HCl (Ondansetron HCl) 4 Mg Tablet, 4 MG PO Q8H PRN for NAUSEA OR VOMITING Rizatriptan Benzoate (Maxalt) 10 Mg Tablet, 10 MG PO BID PRN for PAIN Allergies Coded Allergies: ROSEMARIE Inhibitors (Verified Allergy, Severe, ANGIOEDEMA, 04/09/19) Penicillins (Verified Allergy, Intermediate, HIVES, 04/09/19) amoxicillin (Verified Allergy, Mild, RASH, 04/13/19) latex (Verified Allergy, Unknown, 04/09/19) A-FIB/CHADSVASC A-FIB History Current/History of A-Fib/PAF?: No Current PO Anticoag Therapy: No Age/Risk Factor Scoring CHADSVASC: CHADSVASC Response (Comments) Value Age Risk Factor Age < 65 years old 0 Gender Risk Factor Female 1 Hx of CHF No 0 Hx of HTN No 0 Hx of Stroke/TIA/or VTE No 0 Hx of Diabetes No 0 Hx of Vascular Disease No 0 Total 1 Treatment Treatment ordered: NONE FRANCIS WILLINGHAM MD Apr 29, 2020 14:59
[2020-04-29] MEDS: ACETAMINOPHEN TAB 650MG DOSE (2X325MG) PO PRN ×2 (16:02→22:56)
[2020-04-29] MEDS: amLODIPine 5 MG TAB PO ONE ×2 (16:59→17:22)
[2020-04-29 17:05] VITALS: BP 123/70
[2020-04-29] MEDS ORDERED: FOLIC ACID 1 MG TAB PO SCH (21:00)
[2020-04-29] MEDS ORDERED: HYDROXYCHLOROQUINE 200 MG TAB PO SCH (21:00)
[2020-04-29] MEDS ORDERED: NON-FORMULARY 1 EA EA OU SCH (21:00)
[2020-04-29] MEDS: amLODIPine 5 MG TAB PO SCH (21:00)
[2020-04-29] MEDS ORDERED: METHOTREXATE 2.5 MG TAB (J8610 PER 2.5MG) PO SCH ×2 (21:00)
[2020-04-29] MEDS ORDERED: traZODone 50 MG TAB PO SCH (21:00)
[2020-04-29] MEDS ORDERED: NON-FORMULARY 1 EA EA PO SCH (21:00)
[2020-04-29] MEDS ORDERED: ARIPiprazole 2 MG TAB PO SCH (21:00)
[2020-04-29] MEDS ORDERED: SERTRALINE 100 MG TAB PO SCH (21:00)
[2020-04-29] MEDS: POLYVINYL ALCOHOL OPHTH SOLN 15 ML(LIQUITEARS) OU SCH (21:00)
[2020-04-29] MEDS ORDERED: GABAPENTIN 300 MG CAP PO SCH (21:00)
--- NOTE | 2020-04-29 21:03 | ECGEPIP ---
[facility] - ED Test Date: 2020-04-29 Pat Name: BULMARO ANSARI Department: Room: [place] [address] Gender: Female Child Protective Services Specialist: mark : 1970 Requested By: JOYCE Lee Order Number: [id number] Reading MD: Nilsa Zhang Measurements Intervals [place] Rate: 85 P: 23 WI: 166 QRS: -27 QRSD: 94 T: 8 QT: 396 QTc: 471 Interpretive Statements Normal sinus rhythm Cannot rule out Inferior infarct , age undetermined Possible Anterolateral infarct , age undetermined low voltage limb Electronically Signed on 04-29-2020 21:03:23 EST by Nilsa Zhang
--- NOTE | 2020-04-29 21:25 | REPVR ---
PROCEDURE INFORMATION: Exam: MR Head Without Contrast Exam date and time: 04/29/2020 8:50 PM Age: 49 years old Clinical indication: Speech disturbance and weakness, facial; Slurred speech; Additional info: CVA TECHNIQUE: Imaging protocol: MR of the head without contrast. COMPARISON: CT Head without contrast 04/29/2020 12:18 PM FINDINGS: Ventricles demonstrate normal size and configuration. Major vascular flow voids at the skull base are preserved. No extra-axial fluid collection. No midline shift or intracranial mass effect. Mild nonspecific white matter gliosis, probable chronic microvascular ischemia. No cerebral edema or pathologic susceptibility. No diffusion restriction. Visualized paranasal sinuses and mastoid air cells are clear. IMPRESSION: No acute intracranial abnormality. Electronically signed by: Pascual De Leon On 04/29/2020 21:25:51 PM
--- NOTE | 2020-04-29 21:27 | REPVR ---
PROCEDURE INFORMATION: Exam: MR Angiogram Head Without Contrast, Arteries Exam date and time: 04/29/2020 8:50 PM Age: 49 years old Clinical indication: Speech disturbance and visual disturbance; Slurred speech; Other visual defect; Additional info: CVA TECHNIQUE: Imaging protocol: MR angiogram head without contrast. Exam focused on the arteries. 3D rendering (Not supervised by radiologist): MIP and/or 3D reconstructed images were created by the technologist. COMPARISON: CT Head without contrast 04/29/2020 12:18 PM FINDINGS: ANTERIOR CIRCULATION: Right internal carotid artery: Intracranial segment is patent with no significant stenosis. No aneurysm. Right middle cerebral artery: No occlusion or significant stenosis. No aneurysm. Right anterior cerebral artery: No occlusion or significant stenosis. No aneurysm. Left internal carotid artery: Intracranial segment is patent with no significant stenosis. No aneurysm. Left middle cerebral artery: No occlusion or significant stenosis. No aneurysm. Left anterior cerebral artery: No occlusion or significant stenosis. No aneurysm. POSTERIOR CIRCULATION: Right vertebral artery: No occlusion or significant stenosis. No aneurysm. Left vertebral artery: No occlusion or significant stenosis. No aneurysm. Basilar artery: No occlusion or significant stenosis. No aneurysm. Right posterior cerebral artery: No occlusion or significant stenosis. No aneurysm. Left posterior cerebral artery: No occlusion or significant stenosis. No aneurysm. IMPRESSION: No stenosis or occlusion. Electronically signed by: Pascual De Leon On 04/29/2020 21:27:32 PM
[2020-04-29] MEDS: DOCUSATE SODIUM 100MG CAPSULE PO SCH (21:43)
[2020-04-29] MEDS: DOXYCYCLINE HYCLATE 100MG TABLET PO SCH (21:44)
[2020-04-29 22:00] VITALS: BP 122/70
[2020-04-30] MEDS ORDERED: MORPHINE 2 MG/ML 1ML VIAL (J2270) IV ONE (05:45)
[2020-04-30 06:00] VITALS: BP 116/53
[2020-04-30 09:00] VITALS: BP 102/62
[2020-04-30] MEDS ORDERED: NON-FORMULARY 1 EA EA PO SCH (09:00)
[2020-04-30] MEDS ORDERED: AMPHETAMINE/DEXTROAMPHETAMINE 5 MG *ER* CAPSULE (ADDERALL XR) PO SCH (09:00)
[2020-04-30] MEDS: amLODIPine 5 MG TAB PO SCH (09:00)
[2020-04-30] MEDS: DOCUSATE SODIUM 100MG CAPSULE PO SCH (09:27)
[2020-04-30] MEDS: DOXYCYCLINE HYCLATE 100MG TABLET PO SCH (09:27)
[2020-04-30] MEDS: POLYVINYL ALCOHOL OPHTH SOLN 15 ML(LIQUITEARS) OU SCH (09:27)
--- NOTE | 2020-04-30 11:14 | DS.PDOC ---
Discharge Summary General Date of Admission Apr 29, 2020 at 12:12 Date of Discharge 04/30/20 Discharge Summary DISCHARGE DIAGNOSES: Slurred speech -NORMAL MRI /MRA BRAIN Systemic lupus erythematosus with malar rash Hypertension, uncontrolled Dysphagia right hand cellulitis Sjogrens DISCHARGE MEDICATIONS: SEE BELOW ALLERGIES: SEE BELOW DISCHARGE INSTRUCTIONS: Contract Consultant within 7 days to evaluate for lupus exacerbation. Neurology, Dr. Butler within 7 days to evaluate patient's neurologic complaints. Primary care physician within 7 days HOSPITAL COURSE: 49-year-old female with history of Sjogren's disease, systemic lupus erythematosus with facial malar rash on chronic plaquenil follows with the [facility] . Ophthalmology group presented to the emergency room with complaints of slurred speech, blurred vision and gait ataxia, leaning to the right side. Patient was in her usual state of health until 04/26/2020 after she had her hemorrhoidectomy. The following day she woke up, but her speech was garbled. She thought that it was dry mouth because of her Sjogren's later in the day. She techs that her daughter and was not able to see clear writing on her iPhone. Everything appeared blurry. This was evaluated at [facility] in the afternoon for her routine exam because she's been on Plaquenil. They felt that she needed eyeglasses and was released home. Today at around 12:30 she was speaking with her mom when she felt that her right side of the face was droopy and she had slurred speech. She also complained of dysphagia, feeling that there is a golf ball in her throat and that her pills would not go down. Due to strong family history of multiple sclerosis in her mother and father. Patient had been followed by Dr. Butler at [facility] with no lab prior history of multiple sclerosis documented on MRI in the past. Due to persistent symptoms in time patient decided to come to the ER for further evaluation. Patient had not had any exacerbations of her lupus in the past few years and had been on maintenance therapy with methotrexate, Plaquenil, but since her hemorrhoid surgery. She has held on her benlista for the past 2 weeks.In the emergency room , her glucose was normal.EKG-sinus MRI of the brain was ordered. EKG shows sinus rhythm. She was given 1 dose of aspirin 324mg, hospitalist was asked to admit her for further evaluation of slurred speech, gait ataxia, and visual changes. Slurred speech, gait abnormality, blurred vision, dysphagia -Patient's symptoms have occurred over several days and she has a strong family history of multiple sclerosis -MRI/MRA of the brain: No acute intracranial abnormality -Patient had been seen at [facility] and previously worked up for MS which was negative -Speech therapist has been consulted to rule out aspiration due to complaints of dysphasia -Patient has been given 1 dose of aspirin -Her neurologic symptoms have improved and she does not appear to have any expressive or receptive aphasia with fluent speechOn admission -Due to prior history of lupus, we'll check inflammatory markers and anti-Harmon and wdlr-[id number]-[id number] DNA antibodies to check for possible exacerbation. -Patient was seen at [place] for sight. Ophthalmology group. On the day that she was having changes in vision. She was asked to get eyeglasses as outpatient. Systemic lupus erythematosus with malar rash -May resume all medications -Normal ESR -ordered complement levels, anti-harmon ab and ds ab levels to check for exacerbation. -Patient sees nuclear waste management engineer Dr. GONZALEZ at [facility]-. immediate fu. Hypertension, uncontrolled -monitor for now -avoid rosemarie inh since pt had angioedema with lisinopril used initially for nephroprotective effect due to lupus -may use norvasc if needed. Dysphagia -ugi esophagram in am. -speech therapy r/o aspiration. right hand cellulitis -at previous iv site from hemorrhoidectomy on 04/26/20 -no abscess noted -cannot give bactrim due to risk fo renal failure w concomitant use of methotrexate -allergic to pcn, amoxicillin-cannot use keflex -doxycycline x 7days. or clinda but higher risk of c diff infection Sjogrens -resumed meds DVT prophylaxis: compression stockings Diet: speech eval for dysphagia. regular if no signs of aspiration code status: full code. DISCHARGE PHYSICAL EXAMINATION: VITAL SIGNS: See below GENERAL APPEARANCE: Awake, alert, oriented to person, place and time. No respiratory distress, speaks in full sentences. Speech is fluent HEENT: Malar rash, erythema along the nasolabial fold and cheeks Face is symmetric. Tongue is midline. No JVD, thyromegaly. Moist mucous membranes . Neck is supple, full range of motion CARDIOVASCULAR: S1, S2, sinus rhythm LUNGS: Clear to auscultation. Wheezing, rales or rhonchi ABDOMEN: Soft, nontender, nondistended, positive bowel sounds 4 quadrants MUSCULOSKELETAL: 5 out of 5 motor strength 4 extremities. No sensory disturbance EXTREMITIES: No cyanosis, clubbing or pitting edema. 0.5 cm papule with some erythema noted in the right dorsum of the hand NEUROLOGICAL: Face is symmetric. Tongue is midline. Pupils equally round, reactive to light accommodation. Extra muscles are intact. No dysmetria and finger to nose testing . Motor function is 5 out of 54 extremities. Negative Babinski bilateral lower extremities. No pronator drift. No expressive or receptive aphasia. Speech is fluent . DTRs intact, 2+, hyperaesthetic on right face . LABORATORY DATA: See below. EKG: Sinus rhythm, ventricular rate of 85, LA interval 16.6, QRS 94, QTC 396, QTC 471 IMAGING: CT HEAD WITHOUT CONTRAST INDICATION: neuro symptoms. COMPARISON: None. TECHNIQUE: Helical scanning is acquired. 5 mm axial images were reformatted. Coronal MPR images were generated. FINDINGS: Bone window settings demonstrate an intact bony calvarium. There is no evidence of skull fracture or incidental bony calvarial lesion. The visualized paranasal sinuses appear clear. No intraorbital abnormality is seen. On soft tissue window setting images; the lateral, third, and fourth ventricles are normal in size and p osition. Dempsey-white differentiation pattern is normal above and below the tentorium. There are is no evidence of intracranial hemorrhage. No mass, edema, infarction, or midline shift is seen. No extra-axial fluid collection is appreciated. IMPRESSION: Negative noncontrast head CT. <Electronically signed by Jatin Ballesteros > 04/29/20 1247 CXR INDICATION: CVA. COMPARISON: 04/05/2017. TECHNIQUE: SINGLE PORTABLE AP VIEW OF THE CHEST WAS PERFORMED. FINDINGS: THERE IS NO ACUTE INFILTRATE OR PULMONARY EDEMA. LUNGS ARE CLEAR. HEART IS NOT SIGNIFICANTLY ENLARGED. MEDIASTINAL SILHOUETTE IS UNREMARKABLE. THE VISUALIZED OSSEOUS STRUCTURES ARE INTACT. IMPRESSION: NO ACUTE PULMONARY DISEASE. <Electronically signed by Rolly Dempsey > 04/29/20 1328 MICROBIOLOGY: Please see below. TIME SPENT ON DISCHARGE: 30 MINUTES Vital Signs/I&Os Vital Signs Date Time Temp Pulse Resp B/P (MAP) Pulse Ox O2 Delivery O2 Flow Rate FiO2 04/30/20 09:00 82 102/62 04/30/20 07:35 18 04/30/20 06:00 97.9 98 Room Air I&O- Last 24 Hours up to 6 AM 04/30/20 06:00 Intake Total 1850 ml Balance 1850 ml Laboratory Data Labs 24H Laboratory Tests 2 04/29/20 12:29: Immature Granulocyte % (Auto) 0.7, Neutrophils (%) (Auto) 71.5H, Lymphocytes (%) (Auto) 16.9L, Monocytes (%) (Auto) 6.9H, Eosinophils (%) (Auto) 3.1H, Basophils (%) (Auto) 0.9, Neutrophils # (Auto) 4.9, Lymphocytes # (Auto) 1.2L, Monocytes # (Auto) 0.5, Eosinophils # (Auto) 0.2, Basophils # (Auto) 0.1, Nucleated Red Blood Cells % (auto) 0.0, Erythrocyte Sedimentation Rate 20, Activated Partial Thromboplast Time 28.0, Anion Gap 8, Glomerular Filtration Rate 53.1L, Calcium Level 9.3, Total Creatine Kinase 150, Creatine Kinase MB 1.3, Creatine Kinase MB Relative Index 0.87, Troponin I < 0.02, C-Reactive Protein, Quantitative 4.64H 04/29/20 13:02: Coronavirus (COVID-19)(PCR) NEGATIVE, Influenza Type A (RT-PCR) NEGATIVE, Influenza Type B (RT-PCR) NEGATIVE, Respiratory Syncytial Virus (PCR) NEGATIVE CBC/BMP Laboratory Tests 04/29/20 12:29 Discharge Medications Scheduled Aripiprazole (Aripiprazole) 2 Mg Tablet, 2 MG PO QHS, (Reported) Dextroamphetamine/Amphetamine (Adderall Xr 30 mg Capsule) 30 Mg Cap.er.24h, 30 MG PO DAILY, (Reported) Folic Acid (Folic Acid) 1 Mg Tablet, 1 MG PO QHS, (Reported) Gabapentin (Gabapentin) 300 Mg Capsule, 300 MG PO QHS, (Reported) Hydroxychloroquine Sulfate (Hydroxychloroquine Sulfate) 200 Mg Tab, 400 MG PO QHS, (Reported) Methotrexate Sodium (Methotrexate) 2.5 Mg Tablet, 15 MG PO QWEEK, (Reported) QHS: THURSDAYS Naltrexone HCl/Bupropion HCl (Contrave ER 8-90 mg Tablet) 1 Each Tablet.er, 1 TAB PO QHS, (Reported) Sertraline HCl (Sertraline HCl) 100 Mg Tab, 200 MG PO QHS, (Reported) Terbinafine HCl (Terbinafine HCl) 250 Mg Tablet, 250 MG PO QHS, (Reported) Trazodone HCl (Trazodone HCl) 50 Mg Tablet, 50 MG PO QHS, (Reported) Scheduled PRN Ibuprofen (Ibuprofen) 200 Mg Cap, 600 MG PO Q4H PRN for PAIN, (Reported) Lifitegrast (Xiidra) 5% Droperette, 1 DROP OU BID PRN for DRY EYES, (Reported) Ondansetron HCl (Ondansetron HCl) 4 Mg Tablet, 4 MG PO Q8H PRN for NAUSEA OR VOMITING, (Reported) Rizatriptan Benzoate (Maxalt) 10 Mg Tablet, 10 MG PO BID PRN for PAIN, (Reported) Allergies Coded Allergies: ROSEMARIE Inhibitors (Verified Allergy, Severe, ANGIOEDEMA, 04/09/19) Penicillins (Verified Allergy, Intermediate, HIVES, 04/09/19) amoxicillin (Verified Allergy, Mild, RASH, 04/13/19) latex (Verified Allergy, Unknown, 04/09/19) FRANCIS WILLINGHAM MD Apr 30, 2020 11:02
[2020-04-30] MEDS ORDERED: DOXY100T PO (11:15)
[2020-04-30] MEDS ORDERED: E-Z-HD 98% w/w 340GM SUSP BTL As Ordered ONE (11:23)
[2020-04-30] MEDS ORDERED: E-Z-PAQUE 96% w/w SUSP 176GM BTL As Ordered ONE (11:23)
[2020-04-30] MEDS ORDERED: E-Z-GAS II EFFERVESCENT PACKET (SODIUM BICARB./CITRIC ACID/SIMETHICONE) As Ordered ONE (11:23)
[2020-04-30] MEDS ORDERED: PERCOCET 5MG/325MG TAB PO ONE (11:30)
[2020-04-30 11:58] LABS: COMPLEMENT C3 125 MG/DL (90-180); COMPLEMENT C4 28 MG/DL (10-40)
--- NOTE | 2020-04-30 17:16 | REP ---
INDICATION: dysphagia. COMPARISON: None. TECHNIQUE: The procedure was performed under the direct supervision of Dr. Ballesteros. The images were reviewed with Dr. Ballesteros. Liquid barium was administered in the erect and prone oblique positions in order to perform a single contrast esophagram and upper GI examination. FINDINGS: The oral and pharyngeal stages of deglutition are unremarkable. Esophageal transport is prompt and efficient and there is no esophagitis, stricture or mucosal ring. There is a sliding-type hiatal hernia. Gastroesophageal reflux is not demonstrated on this examination. The stomach demonstrates postsurgical changes consistent with the patient's history of Heather-en-Y gastric bypass. There is free flow contrast through the anastomosis without delay. There is no evidence of stricture or obstruction. There is no evidence of gastritis neoplasm or ulcer disease. The visualized portion of the proximal small bowel appears normal in course and caliber. IMPRESSION: There is a sliding-type hiatal hernia. There are postsurgical changes of the stomach consistent with the patient's history of Heather-en-Y gastric bypass. <Electronically signed by Justus Can > 04/30/20 1653 <Electronically signed by Jatin Ballesteros > 04/30/20 1712
[2020-05-03 15:08] LABS: ANTI DS-DNA AB Negative (Negative); ANTI SMITH(Sm) AB <20 Units (<20)
== END 2020-04-30 14:11 | disposition home or self-care (01) ==
LOC: M ED 12:11 → M ED INP 12:12 → M MSPAV 15:26
PROVIDERS: ADMIT General Practice; ATTEND General Practice
DX: R47.81 Slurred speech (principal); R21 Rash and other nonspecific skin eruption; M32.9 Systemic lupus erythematosus, unspecified; I10 Essential (primary) hypertension; R13.10 Dysphagia, unspecified; L03.113 Cellulitis of right upper limb; M35.00 Sjogren syndrome, unspecified; Z79.899 Other long term (current) drug therapy; Z88.0 Allergy status to penicillin; Z91.040 Latex allergy status; Z88.8 Allergy status to other drugs, medicaments and biological substances
CPT/HCPCS: 70450; 70544; 70551; 71045; 74240; 80048; 82550; 82553; 85025; 85652; 85730; 86140; 86160; 86225; 86235; 87631; 92610; 93005; 93041; 94760; 96374; 99285; J2270; J8610

== ENCOUNTER → 2020-05-03 | Outpatient (CLI) | payer OTHER ==
[~2020-05-03] MED LIST changes: +ADDE30CA3 PO; +ARIP1TAB4 PO; +CONT1TAB PO; +DOXY100T PO; +FOLI1TAB11 PO; +MAXA10TA14 PO; +METH2.5T48 PO; +PROHANCE 279.3MG/ML 5ML VIAL As Ordered ONE; +TERB250T12 PO; +XIID5DRO OU
--- NOTE | 2020-05-03 13:30 | REP ---
INDICATION: BREAST CANCER SCREENING, HIGH RISK PT. COMPARISON: Comparison mammography October 16, 2019. TECHNIQUE: Three Jocelyne MRI imaging was performed with a dedicated breast coil. Axial, coronal, and sagittal T1 and T2 weighted scans were obtained with and without fat saturation in the usual fashion. The study includes dynamically acquired post gadolinium-enhanced imaging with image subtraction. Maximum intensity projection and multi planar reformation imaging is included as well. This study is interpreted with the aid of [employer], an FDA approved computer aided detection (CAD) software program, on a dedicated breast MRI workstation. The gadolinium enhancement dose is 8 mL of intravenous ProHance. FINDINGS: There are intact bilateral subglandular saline augmentation implants. There is a mild fibroglandular pattern of breast parenchyma noted bilaterally. There is a minimal pattern of background parenchymal enhancement. There is a benign enhancing intramammary lymph node in the inferior and medial quadrant of the right breast adjacent to the right-sided implant. This measures 6 mm in greatest diameter. This is visible on mammography dating back to at least 2014. There is a smaller similar intramammary lymph node in the inferomedial quadrant of the left breast along the and the margin of the implant. These are symmetrical. There is no evidence of axillary lymphadenopathy on either side. No cystic disease is seen. No internal mammary adenopathy is observed. No suspicious morphologic abnormality is seen on high-resolution T1 or T2 weighted scans in either breast. No and area of suspicious enhancement and washout is seen in either breast on dynamically acquired sequential postcontrast images. Subtraction images show no additional abnormality. IMPRESSION: BI-RADS category 2 benign findings. Patients whose estimated lifetime breast cancer risk assessment is greater than 20% merit annual screening breast MRI scanning in addition to annual screening mammography. <Electronically signed by Jatin Ballesteros > 05/03/20 3138
== END ==
LOC: M RAD 10:43
PROVIDERS: ATTEND Advanced Practice Midwife
DX: Z12.31 Encounter for screening mammogram for malignant neoplasm of breast (principal); Z80.3 Family history of malignant neoplasm of breast
CPT/HCPCS: A9576; C8908

== ENCOUNTER → 2020-06-01 | Outpatient (CLI) | payer OTHER ==
[~2020-06-01] MED LIST changes: -PROHANCE 279.3MG/ML 5ML VIAL As Ordered ONE
[2020-06-01 14:18] LABS: HEMATOCRIT 41.9 % (36.0-47.0); HEMOGLOBIN 12.3 g/dl (12.0-15.5); MEAN CORPUSCULAR HEMOGLOBIN 24.1 pg (27.0-33.0); MEAN CORPUSCULAR HGB CONC 29.4 g/dl (32.0-36.5); PLATELET COUNT, AUTOMATED 264 10^3/uL (150-450); RED BLOOD COUNT 5.11 10^6/uL (4.00-5.40); WHITE BLOOD COUNT 6.7 10^3/uL (4.0-10.0)
[2020-06-01 14:52] LABS: ALBUMIN 3.5 GM/DL (3.2-5.2); ALT/SGPT 24 U/L (12-78); BILIRUBIN,DIRECT < 0.1 MG/DL (0.0-0.2); BILIRUBIN,TOTAL 0.2 MG/DL (0.2-1.0); BLOOD UREA NITROGEN 16 MG/DL (7-18); CALCIUM LEVEL 9.3 MG/DL (8.5-10.1); CARBON DIOXIDE LEVEL 29 MEQ/L (21-32); CHLORIDE LEVEL 108 MEQ/L (98-107); CREATININE FOR GFR 1.04 MG/DL (0.55-1.30); GLOMERULAR FILTRATION RATE > 60.0 (>58); GLUCOSE, FASTING 93 MG/DL (70-100); PHOSPHORUS LEVEL 2.8 MG/DL (2.5-4.9); SODIUM LEVEL 141 MEQ/L (136-145); TOTAL PROTEIN 6.8 GM/DL (6.4-8.2)
== END ==
LOC: M WUC 11:57
PROVIDERS: ATTEND Podiatrist Foot & Ankle Surgery
DX: B35.1 Tinea unguium (principal); Z79.899 Other long term (current) drug therapy

== ENCOUNTER → 2020-06-28 | Outpatient (CLI) | payer OTHER ==
--- NOTE | 2020-06-29 10:22 | ECHO ---
DATE OF PROCEDURE: 06/28/2020 Age: 50 Gender: Female Height: 60 inches Weight: 200 pounds Body Surface Area: 1.86 m2 PATIENT LOCATION: Outpatient. REFERRING PHYSICIAN: Dr. Alie Faria. INDICATION: TIA Cardiac source? MEASUREMENTS: 2D Measurements: RV - 3.9 cm. LV 4.6 cm Septum 1.0 cm Posterior wall 1.0 cm Aortic Root 3.2 cm LA - 3.8 cm LVEF 65% Doppler Measurements: AV 1.0 m/s LVOT 0.81 m/s LVOT diameter 2.3 cm MV-E 75, A 62, EA ratio 1.2 Early mitral deceleration time 140 msec E prime medial 7.7, A prime medial 7.3, E prime lateral 8.8 Average E/E prime ratio 9/PCWP 13.2 mmHg PV - 0.75 m/s Pulmonary artery acceleration time 120 msec RVSP - 24 mmHg IVC - 1.6 cm COMMENTS: Normal sinus rhythm without intraventricular conduction disturbance. Technically challenging study in light of the patient's body habitus, but diagnostically useful information was still obtained. M-mode and two-dimensional echocardiography was performed with pulse, Continuous Wave, color flow, and tissue Doppler studies. Normal left ventricular size, wall thickness, and wall motion. Left atrial size upper limits of normal with normal Doppler assessment of LV diastolic function and estimated mean left atrial pressure. Normal right heart chamber sizes and motion and estimated pulmonary arterial pressure. Normal IVC size and collapse against an elevated central venous pressure. Normal aortic dimensions. Normal appearing and functioning valvular structures. No apparent intracardiac mass or pericardial effusion. MTDD
== END ==
LOC: M CARPUL 08:32
DX: G45.9 Transient cerebral ischemic attack, unspecified (principal)

== ENCOUNTER → 2020-12-02 | Outpatient (CLI) | payer OTHER ==
[~2020-12-02] MED LIST changes: -QUET50TA3; +QUET50TA4; -RIZA5TAB; +RIZA5TAB2
--- NOTE | 2020-12-02 14:31 | REPMRS ---
Patient History The patient states she had a clinical breast exam in August 2020. Patient is postmenopausal. Family history of breast cancer at age 57 in mother, breast cancer at age 60 in mother. Benign excisional biopsy of the left breast, 2011. Silicone gel implants in both breasts, 2010. Patient states no breast complaints today. Patient has signed MRS History Sheet. Digital Woman Screen Mammo: December 02, 2020 - Exam #: [id number] Bilateral CC and MLO view(s) were taken. Technologist: Lisa Bland, Technologist Prior study comparison: October 16, 2019, bilateral digital woman screen mammo performed at [facility]. June 21, 2018, bilateral digital mammo screening bilat, performed at [facility]. FINDINGS: There are scattered fibroglandular densities. Screening. Digital screening (2D) mammography was performed bilaterally in the CC and MLO projections. Additionally, breast tomosynthesis (3D mammography) was performed bilaterally in the CC and MLO projections. Todays exam was compared to the prior exam/exams.Both Haylee and non-Haylee views were obtained. By history, the patient has no complaints of a palpable breast abnormality or other significant breast complaints. The breasts are unchanged in size and shape. There are no rosa-soft tissue densities or spiculated masses. There is no internal architectural distortion. Once again, stable benign appearing calcifications are seen.There are no suspicious rosa-calcific clusters. Skin thickening or nipple retraction is not present. IMPRESSION: BI-RADS Category 2- Benign Findings. There is no evidence of malignant alteration of the breasts. Followup examination recommended in one year. The Volpara volumetric breast density category is B, there are scattered areas of fibroglandular densities. This mammogram was read with the assistance of SPARQ,an FDA approved computer aided detection system for mammography. The lifetime Tyrer-Cuzick score is 15.5 % Negative x-ray reports should not delay surgical consultation if a dominant or clinically suspicious mass is present. Not all breast cancers can be identified by mammography. Therefore, we recommend that you continue to perform regular breast self-examination and physical examination and then promptly contact your physician of any concerns or changes. Adenosis and dense breasts may obscure an underlying neoplasm. Assessment: BI-RADS/ACR category 2 mammogram. Benign Findings. Recommendation Routine screening mammogram of both breasts in 1 year. Electronically Signed By: Dangelo Trinidad DO 12/02/20 7214
== END ==
LOC: M WHC 12:53
PROVIDERS: ATTEND Nurse Practitioner
DX: Z12.31 Encounter for screening mammogram for malignant neoplasm of breast (principal)

== ENCOUNTER → 2021-11-22 | Outpatient (REF) | payer OTHER ==
[~2021-11-22] MED LIST changes: -TERB250T12 PO; +TERB250T91 PO
== END ==
LOC: M WUC 16:21
PROVIDERS: ATTEND Student in an Organized Health Care Education/Training Program
DX: R30.0 Dysuria (principal)

== ENCOUNTER → 2021-12-05 | Outpatient (CLI) | payer OTHER ==
[~2021-12-05] MED LIST changes: -MAXA10TA14 PO; +RIZA10TA64 PO
== END ==
LOC: M WHC 09:26
PROVIDERS: ATTEND Nurse Practitioner Family
DX: Z12.31 Encounter for screening mammogram for malignant neoplasm of breast (principal); Z98.82 Breast implant status

== ENCOUNTER → 2022-01-20 | Outpatient (CLI) | payer OTHER | LOC: M RAD 12:41 | PROVIDERS: ATTEND Nurse Practitioner Family | DX: M51.36 Other intervertebral disc degeneration, lumbar region (principal); M47.816 Spondylosis without myelopathy or radiculopathy, lumbar region; R32 Unspecified urinary incontinence ==

== ENCOUNTER → 2022-01-31 | Outpatient (CLI) | payer OTHER ==
[2022-01-31 14:38] LABS: APPEARANCE, URINE MANUAL CLEAR (CLEAR); COLOR, URINE MANUAL YELLOW (YELLOW); SPECIFIC GRAVITY,URINE MANUAL 1.015 (1.002-1.035)
[2022-01-31 14:39] LABS: BILIRUBIN, URINE MANUAL NEGATIVE (NEGATIVE); BLOOD URINE MANUAL NEGATIVE (NEGATIVE); GLUCOSE, URINE (UA) MANUAL NEGATIVE (NEGATIVE); KETONE, URINE MANUAL NEGATIVE (NEGATIVE); LEUKOCYTE ESTERASE, URINE MAN POSITIVE (NEGATIVE); NITRITE, URINE MANUAL NEGATIVE (NEGATIVE); PROTEIN, URINE MANUAL NEGATIVE (NEGATIVE); UROBILINOGEN, URINE MANUAL NORMAL (NORMAL)
[2022-01-31 14:54] LABS: BACTERIA, URINE SMALL AMOUNT; HYALINE CAST, URINE NONE SEEN /lpf (0-1); RBC, URINE NONE SEEN /hpf (0-3); SQUAMOUS EPITHELIAL CELL URINE NONE SEEN /hpf (SMALL AMT)
== END ==
LOC: M LAB 13:33
PROVIDERS: ATTEND Nurse Practitioner Family
DX: R39.9 Unspecified symptoms and signs involving the genitourinary system (principal)

== ENCOUNTER → 2022-02-07 | Outpatient (REF) | payer OTHER ==
[2022-02-07 21:00] LABS: APPEARANCE, URINE MANUAL CLEAR (CLEAR); BILIRUBIN, URINE MANUAL NEGATIVE (NEGATIVE); BLOOD URINE MANUAL NEGATIVE (NEGATIVE); COLOR, URINE MANUAL LT YELLOW (YELLOW); GLUCOSE, URINE (UA) MANUAL NEGATIVE (NEGATIVE); KETONE, URINE MANUAL NEGATIVE (NEGATIVE); LEUKOCYTE ESTERASE, URINE MAN POSITIVE (NEGATIVE); NITRITE, URINE MANUAL NEGATIVE (NEGATIVE); PROTEIN, URINE MANUAL TRACE mg/dL (NEGATIVE); SPECIFIC GRAVITY,URINE MANUAL 1.015 (1.002-1.035); UROBILINOGEN, URINE MANUAL NORMAL (NORMAL)
[2022-02-07 21:25] LABS: BACTERIA, URINE SMALL AMOUNT; HYALINE CAST, URINE NONE SEEN /lpf (0-1); SQUAMOUS EPITHELIAL CELL URINE SMALL AMOUNT /hpf (SMALL AMT)
== END ==
LOC: M SMT 17:11
PROVIDERS: ATTEND Physician Assistant
DX: R30.0 Dysuria (principal)

== ENCOUNTER → 2022-03-29 | Outpatient (CLI) | payer OTHER ==
[2022-03-29 21:28] LABS: APPEARANCE, URINE MANUAL CLEAR (CLEAR); COLOR, URINE MANUAL LT YELLOW (YELLOW)
[2022-03-29 21:29] LABS: BILIRUBIN, URINE MANUAL NEGATIVE (NEGATIVE); BLOOD URINE MANUAL NEGATIVE (NEGATIVE); GLUCOSE, URINE (UA) MANUAL NEGATIVE (NEGATIVE); KETONE, URINE MANUAL NEGATIVE (NEGATIVE); LEUKOCYTE ESTERASE, URINE MAN NEGATIVE (NEGATIVE); NITRITE, URINE MANUAL NEGATIVE (NEGATIVE); PH,URINE MAN 5.5 UNITS (5.0 - 7.0); PROTEIN, URINE MANUAL NEGATIVE (NEGATIVE); UROBILINOGEN, URINE MANUAL NORMAL (NORMAL)
== END ==
LOC: M LAB 17:33
PROVIDERS: ATTEND Physician Assistant
DX: R30.0 Dysuria (principal)

== ENCOUNTER → 2022-03-29 | Outpatient (CLI) | payer OTHER ==
[~2022-03-29] MED LIST changes: +ISOVUE-370 76% 100ML VIAL As Ordered ONE
== END ==
LOC: M RAD 17:24 → M LAB 17:24
PROVIDERS: ATTEND Nurse Practitioner Family
DX: N39.0 Urinary tract infection, site not specified (principal); R32 Unspecified urinary incontinence; N10 Acute pyelonephritis

== ENCOUNTER → 2022-04-10 | Outpatient (CLI) | payer OTHER ==
[~2022-04-10] MED LIST changes: -ISOVUE-370 76% 100ML VIAL As Ordered ONE
== END ==
LOC: M LABSMTC 10:11
PROVIDERS: ATTEND Internal Medicine Gastroenterology
DX: Z11.52 Encounter for screening for COVID-19 (principal)

== ENCOUNTER 2022-06-30 16:47 | Emergency (ER) | payer OTHER ==
[~2022-06-30] VITALS: Ht 152.4 cm; Wt 87.3 kg
[2022-06-30] MEDS ORDERED: LIDOCAINE 1% MDV 20ML VIAL SC ONE (17:05)
[2022-06-30 17:24] LABS: BASO # 0.1 10^3/uL (0.0-0.2); BASO % 0.5 % (0.0-1.0); EOS # 0.2 10^3/uL (0.0-0.5); EOS % 1.4 % (0.0-3.0); HEMATOCRIT 43.6 % (36.0-47.0); LYMPH # 1.2 10^3/uL (1.5-5.0); LYMPH % 10.9 % (24.0-44.0); MEAN CORPUSCULAR HEMOGLOBIN 27.2 pg (27.0-33.0); MEAN CORPUSCULAR HGB CONC 32.1 g/dl (32.0-36.5); MEAN CORPUSCULAR VOLUME 84.7 fl (80.0-96.0); MONO # 0.5 10^3/uL (0.0-0.8); MONO % 4.5 % (2.0-8.0); NEUTROPHILS # 8.7 10^3/uL (1.5-8.5); NEUTROPHILS % 82.1 % (36.0-66.0); PLATELET COUNT, AUTOMATED 207 10^3/uL (150-450); RED BLOOD COUNT 5.15 10^6/uL (4.00-5.40); WHITE BLOOD COUNT 10.5 10^3/uL (4.0-10.0)
[2022-06-30 17:29] LABS: ERYTHROCYTE SEDIMENTATION RATE 43 mm/hr (0-30)
[2022-06-30] MEDS ORDERED: DOXY-443 PO (17:37)
[2022-06-30] MEDS ORDERED: ONDANSETRON 4MG ORAL DISINTEGRATING TAB PO ONE (17:40)
[2022-06-30] MEDS ORDERED: DOXYCYCLINE HYCLATE 100MG TABLET PO ONE (17:40)
[2022-06-30 17:58] LABS: BLOOD UREA NITROGEN 14 MG/DL (9-23); CALCIUM LEVEL 8.8 MG/DL (8.5-10.1); CARBON DIOXIDE LEVEL 27 MMOL/L (20-31); CHLORIDE LEVEL 106 MMOL/L (98-107); CREATININE FOR GFR 0.81 MG/DL (0.55-1.30); GLOMERULAR FILTRATION RATE > 60.0 (>51); GLUCOSE, FASTING 87 MG/DL (60-100); POTASSIUM SERUM 3.4 MMOL/L (3.5-5.1); SODIUM LEVEL 140 MMOL/L (136-145)
[2022-06-30] MEDS ORDERED: POTASSIUM CHLORIDE 10MEQ SR TABLET PO ONE (18:10)
[2022-06-30 18:13] VITALS: BP 140/93
== END 2022-06-30 18:15 | disposition home or self-care (01) ==
LOC: M ED 16:47 → EEVIPCON 16:47 → M ED 18:15
DX: L02.411 Cutaneous abscess of right axilla (principal); M32.9 Systemic lupus erythematosus, unspecified; Z86.73 Personal history of transient ischemic attack (TIA), and cerebral infarction without residual deficits; Z88.8 Allergy status to other drugs, medicaments and biological substances; Z88.0 Allergy status to penicillin; Z88.1 Allergy status to other antibiotic agents; Z91.040 Latex allergy status; Z79.899 Other long term (current) drug therapy

== ENCOUNTER 2023-02-25 15:10 | Emergency (ER) | payer OTHER ==
[~2023-02-25] VITALS: Ht 152.4 cm; Wt 81.6 kg
[~2023-02-25 15:10] MED LIST changes: +DOXY-443 PO; -HYDR200T3 PO; +HYDR200T46 PO
[2023-02-25] MEDS ORDERED: BUPR-71 PO (15:24)
[2023-02-25] MEDS ORDERED: ANIF300V IV (15:24)
[2023-02-25] MEDS ORDERED: ERGO500029 PO (15:24)
[2023-02-25 15:57] LABS: BASO % 0.4 % (0.0-1.0); EOS # 0.2 10^3/uL (0.0-0.5); EOS % 2.9 % (0.0-3.0); HEMATOCRIT 40.9 % (36.0-47.0); HEMOGLOBIN 13.1 g/dl (12.0-15.5); LYMPH # 0.8 10^3/uL (1.5-5.0); LYMPH % 15.2 % (24.0-44.0); MEAN CORPUSCULAR VOLUME 84.2 fl (80.0-96.0); MONO # 0.5 10^3/uL (0.0-0.8); MONO % 8.7 % (2.0-8.0); NEUTROPHILS # 3.8 10^3/uL (1.5-8.5); NEUTROPHILS % 72.6 % (36.0-66.0); PLATELET COUNT, AUTOMATED 160 10^3/uL (150-450); RED BLOOD COUNT 4.86 10^6/uL (4.00-5.40); WHITE BLOOD COUNT 5.3 10^3/uL (4.0-10.0)
[2023-02-25] MEDS ORDERED: ISOVUE-370 76% 100ML VIAL As Ordered ONE (16:07)
[2023-02-25 16:16] LABS: ERYTHROCYTE SEDIMENTATION RATE 33 mm/hr (0-30)
[2023-02-25 16:18] LABS: MAGNESIUM LEVEL 1.8 MG/DL (1.8-2.4)
[2023-02-25 16:19] LABS: C REACTIVE PROTEIN QUANTITATIV 2.1 MG/DL (<1.0)
[2023-02-25 18:28] VITALS: BP 112/60; TEMP 97.7; O2SAT 97
[2023-02-25] MEDS ORDERED: CEPH500C PO (18:34)
[2023-02-25] MEDS ORDERED: KETOROLAC 30 MG/ML 1ML VIAL IV ONE (19:05)
[2023-02-25] MEDS ORDERED: CEPHALEXIN 500 MG CAP PO ONE ×2 (20:00)
== END 2023-02-25 19:44 | disposition home or self-care (01) ==
LOC: M ED 15:10
DX: L03.211 Cellulitis of face (principal); Z88.0 Allergy status to penicillin; Z88.1 Allergy status to other antibiotic agents; Z91.040 Latex allergy status; Z98.84 Bariatric surgery status; Z79.891 Long term (current) use of opiate analgesic; Z79.899 Other long term (current) drug therapy
CPT/HCPCS: 70487; 80047; 83735; 85025; 85652; 86140; 96374; 99284; J1885; Q9967

== ENCOUNTER 2023-02-28 10:07 | Observation (INO) | payer OTHER ==
[~2023-02-28] VITALS: Ht 152.4 cm; Wt 83.4 kg
[~2023-02-28 10:07] MED LIST changes: +ANIF300V IV; +BUPR-71 PO; +CEPH500C PO; +ERGO500029 PO
[2023-02-28 11:37] LABS: BASO # 0.1 10^3/uL (0.0-0.2); BASO % 0.8 % (0.0-1.0); EOS # 0.2 10^3/uL (0.0-0.5); EOS % 2.8 % (0.0-3.0); HEMATOCRIT 40.6 % (36.0-47.0); HEMOGLOBIN 12.9 g/dl (12.0-15.5); LYMPH % 15.9 % (24.0-44.0); MEAN CORPUSCULAR HEMOGLOBIN 26.9 pg (27.0-33.0); MEAN CORPUSCULAR HGB CONC 31.8 g/dl (32.0-36.5); MEAN CORPUSCULAR VOLUME 84.6 fl (80.0-96.0); MONO # 0.4 10^3/uL (0.0-0.8); MONO % 6.7 % (2.0-8.0); NEUTROPHILS # 4.4 10^3/uL (1.5-8.5); NEUTROPHILS % 73.3 % (36.0-66.0); PLATELET COUNT, AUTOMATED 239 10^3/uL (150-450)
[2023-02-28 11:54] LABS: ALBUMIN 3.1 G/DL (3.2-5.2); ALKALINE PHOSPHATASE 114 U/L (46-116); ALT/SGPT 74 U/L (7.0-40); AST/SGOT 47 U/L (<34); BILIRUBIN,DIRECT < 0.1 MG/DL (<0.4); BILIRUBIN,TOTAL 0.2 MG/DL (0.3-1.2); BLOOD UREA NITROGEN 10 MG/DL (9-23); CALCIUM LEVEL 8.4 MG/DL (8.5-10.1); CARBON DIOXIDE LEVEL 25 MMOL/L (20-31); CHLORIDE LEVEL 112 MMOL/L (98-107); CREATININE FOR GFR 0.79 MG/DL (0.55-1.30); GLOMERULAR FILTRATION RATE > 60.0 (>51); GLUCOSE, FASTING 88 MG/DL (60-100); POTASSIUM SERUM 3.8 MMOL/L (3.5-5.1); SODIUM LEVEL 145 MMOL/L (136-145); TOTAL PROTEIN 6.2 G/DL (5.7-8.2)
[2023-02-28 11:56] LABS: ERYTHROCYTE SEDIMENTATION RATE 56 mm/hr (0-30)
[2023-02-28] MEDS ORDERED: ISOVUE-370 76% 100ML VIAL As Ordered ONE (12:14)
[2023-02-28 12:16] LABS: THYROXINE (T4) 6.8 UG/DL (4.5-10.9)
[2023-02-28 12:17] LABS: THYROID STIMULATING HORMONE 5.122 uIU/ML (0.55-4.78)
[2023-02-28 12:20] LABS: PROCALCITONIN 0.12 ng/ml
[2023-02-28] MEDS ORDERED: diphenhydrAMINE 50MG/ML VIAL IV ONE (13:05)
[2023-02-28] MEDS ORDERED: CEFTAROLINE FOSAMIL 600 MG in D5W MINI-BAG PLUS 50 ML IV ONE (13:15)
[2023-02-28] MEDS ORDERED: METOCLOPRAMIDE INJ 10MG/2ML VIAL IV ONE (13:30)
[2023-02-28] MEDS ORDERED: KETOROLAC 30 MG/ML 1ML VIAL IV ONE (13:30)
[2023-02-28] MEDS ORDERED: MED REC IN PROGRESS XX SCH (14:15)
[2023-02-28] MEDS ORDERED: ZOLO100T PO (14:37)
[2023-02-28] MEDS ORDERED: TRAZ-257 PO (14:37)
[2023-02-28] MEDS ORDERED: CEPH500C PO (14:37)
[2023-02-28] MEDS ORDERED: HOME MED LIST COMPLETE! XX SCH (14:40)
[2023-02-28] MEDS ORDERED: RIZATRIPTAN BENZOATE 10 MG TAB PO PRN (16:00)
[2023-02-28] MEDS ORDERED: ACETAMINOPHEN TAB 650MG DOSE (2X325MG) PO PRN (16:00)
[2023-02-28] MEDS ORDERED: traZODone 100 MG TAB PO PRN (16:00)
[2023-02-28] MEDS ORDERED: IBUPROFEN 200MG TAB PO PRN (16:00)
[2023-02-28] MEDS ORDERED: LIFITEGRAST OU PRN (16:00)
[2023-02-28 20:00] VITALS: BP 128/65; TEMP 97.9; O2SAT 99
[2023-02-28] MEDS: SERTRALINE 100 MG TAB PO SCH (21:04)
[2023-02-28] MEDS: FOLIC ACID 1MG TAB PO SCH (21:04)
[2023-02-28] MEDS: GABAPENTIN 300 MG CAP PO SCH (21:04)
[2023-02-28] MEDS: buPROPion **SR TABLET** (ZYBAN) 150MG PO SCH (21:04)
[2023-02-28] MEDS: HYDROXYCHLOROQUINE 200 MG TAB PO SCH (21:05)
[2023-02-28] MEDS: KETOROLAC 30 MG/ML 1ML VIAL IV PRN (22:22)
[2023-03-01] MEDS: CEFTAROLINE FOSAMIL 600 MG in D5W MINI-BAG PLUS 50 ML IV SCH ×2 (02:19→16:00)
[2023-03-01 04:00] VITALS: BP 116/66; TEMP 99; O2SAT 99
[2023-03-01] MEDS: KETOROLAC 30 MG/ML 1ML VIAL IV PRN ×2 (05:25→12:50)
[2023-03-01 05:59] LABS: HEMATOCRIT 36.8 % (36.0-47.0); HEMOGLOBIN 11.5 g/dl (12.0-15.5); MEAN CORPUSCULAR HEMOGLOBIN 26.6 pg (27.0-33.0); MEAN CORPUSCULAR HGB CONC 31.3 g/dl (32.0-36.5); MEAN CORPUSCULAR VOLUME 85.2 fl (80.0-96.0); PLATELET COUNT, AUTOMATED 206 10^3/uL (150-450); RED BLOOD COUNT 4.32 10^6/uL (4.00-5.40); WHITE BLOOD COUNT 3.8 10^3/uL (4.0-10.0)
[2023-03-01 06:27] LABS: BLOOD UREA NITROGEN 11 MG/DL (9-23); CALCIUM LEVEL 7.9 MG/DL (8.5-10.1); CARBON DIOXIDE LEVEL 26 MMOL/L (20-31); CHLORIDE LEVEL 108 MMOL/L (98-107); GLOMERULAR FILTRATION RATE > 60.0 (>51); GLUCOSE, FASTING 125 MG/DL (60-100); POTASSIUM SERUM 3.7 MMOL/L (3.5-5.1); SODIUM LEVEL 141 MMOL/L (136-145)
[2023-03-01] MEDS: PERCOCET 5MG/325MG TAB PO PRN ×2 (09:46→20:04)
[2023-03-01] MEDS: ENOXAPARIN 40MG/0.4ML SYRINGE (J1650 PER 10MG) SC SCH (10:12)
[2023-03-01 16:00] VITALS: BP 111/77; TEMP 98.7; O2SAT 97
[2023-03-01] MEDS: valACYclovir HCL 500 MG TAB PO SCH ×2 (17:19→20:09)
[2023-03-01 20:00] VITALS: BP 141/74; TEMP 98.2; O2SAT 98
[2023-03-01] MEDS: HYDROXYCHLOROQUINE 200 MG TAB PO SCH (20:01)
[2023-03-01] MEDS: buPROPion **SR TABLET** (ZYBAN) 150MG PO SCH (20:01)
[2023-03-01] MEDS: FOLIC ACID 1MG TAB PO SCH (20:01)
[2023-03-01] MEDS: SERTRALINE 100 MG TAB PO SCH (20:01)
[2023-03-01] MEDS: GABAPENTIN 300 MG CAP PO SCH (20:01)
[2023-03-02] MEDS: CEFTAROLINE FOSAMIL 600 MG in D5W MINI-BAG PLUS 50 ML IV SCH (02:25)
[2023-03-02] MEDS: PERCOCET 5MG/325MG TAB PO PRN (04:43)
[2023-03-02 05:00] VITALS: BP 98/78; TEMP 97.2; O2SAT 97
[2023-03-02] MEDS: KETOROLAC 30 MG/ML 1ML VIAL IV PRN (08:32)
[2023-03-02] MEDS: valACYclovir HCL 500 MG TAB PO SCH (08:32)
[2023-03-02] MEDS: ENOXAPARIN 40MG/0.4ML SYRINGE (J1650 PER 10MG) SC SCH (08:35)
[2023-03-02 14:00] VITALS: BP 103/52; TEMP 97.6; O2SAT 99
[2023-03-02] MEDS ORDERED: BACT800T5 PO (14:13)
[2023-03-02] MEDS ORDERED: KETO10TAB PO (14:13)
[2023-03-02] MEDS ORDERED: VALA500T5 PO (14:13)
== END 2023-03-02 14:57 | disposition home or self-care (01) ==
LOC: M ED 10:07 → M ED INP 10:08 → ENRESERV 19:51 → M MS4PR 19:57
PROVIDERS: ADMIT Internal Medicine; ATTEND Internal Medicine
DX: L03.211 Cellulitis of face (principal); L02.01 Cutaneous abscess of face; A49.02 Methicillin resistant Staphylococcus aureus infection, unspecified site; M35.00 Sjogren syndrome, unspecified; M32.9 Systemic lupus erythematosus, unspecified; G43.909 Migraine, unspecified, not intractable, without status migrainosus; E66.9 Obesity, unspecified; Z98.84 Bariatric surgery status; Z82.3 Family history of stroke; Z82.0 Family history of epilepsy and other diseases of the nervous system; Z88.0 Allergy status to penicillin; Z91.040 Latex allergy status; Z88.8 Allergy status to other drugs, medicaments and biological substances; Z79.899 Other long term (current) drug therapy
CPT/HCPCS: 36415; 70491; 80048; 80076; 83605; 84145; 84436; 84443; 85025; 85027; 85652; 86140; 87040; 87070; 87077; 87186; 87252; 87486; 87581; 87633; 87798; 93005; 93041; 94760; 96365; 96366; 96375; 96376; 99285; J0712; J1200; J1885; J2765; Q9967; S0106

== ENCOUNTER 2023-04-19 15:09 | Emergency (ER) | payer OTHER ==
[~2023-04-19] VITALS: Ht 152.4 cm; Wt 79.9 kg
[~2023-04-19 15:09] MED LIST changes: +BACT800T5 PO; +KETO10TAB PO; +TRAZ-257 PO; +VALA500T5 PO; +ZOLO100T PO
[2023-04-19 18:21] LABS: BASO # 0.1 10^3/uL (0.0-0.2); BASO % 0.6 % (0.0-1.0); EOS # 0.3 10^3/uL (0.0-0.5); EOS % 2.6 % (0.0-3.0); HEMATOCRIT 43.6 % (36.0-47.0); HEMOGLOBIN 13.7 g/dl (12.0-15.5); LYMPH # 1.6 10^3/uL (1.5-5.0); LYMPH % 13.7 % (24.0-44.0); MEAN CORPUSCULAR HEMOGLOBIN 26.6 pg (27.0-33.0); MEAN CORPUSCULAR HGB CONC 31.4 g/dl (32.0-36.5); MEAN CORPUSCULAR VOLUME 84.5 fl (80.0-96.0); MONO # 0.5 10^3/uL (0.0-0.8); MONO % 4.6 % (2.0-8.0); NEUTROPHILS % 78.1 % (36.0-66.0); PLATELET COUNT, AUTOMATED 290 10^3/uL (150-450); RED BLOOD COUNT 5.16 10^6/uL (4.00-5.40); WHITE BLOOD COUNT 11.5 10^3/uL (4.0-10.0)
[2023-04-19 18:47] LABS: BLOOD UREA NITROGEN 11 MG/DL (9-23); CARBON DIOXIDE LEVEL 29 MMOL/L (20-31); CHLORIDE LEVEL 106 MMOL/L (98-107); CREATININE FOR GFR 0.88 MG/DL (0.55-1.30); GLOMERULAR FILTRATION RATE > 60.0 (>51); GLUCOSE, FASTING 85 MG/DL (60-100); POTASSIUM SERUM 4.2 MMOL/L (3.5-5.1); SODIUM LEVEL 138 MMOL/L (136-145)
[2023-04-19 19:01] LABS: ERYTHROCYTE SEDIMENTATION RATE 50 mm/hr (0-30)
[2023-04-19] MEDS ORDERED: dexAMETHasone 20MG/5ML VIAL IV ONE (19:35)
[2023-04-19] MEDS ORDERED: CLINDAMYCIN 900 MG in IV 1 EA IV ONE (19:35)
[2023-04-19] MEDS ORDERED: valACYclovir HCL 500 MG TAB PO ONE (19:35)
[2023-04-19] MEDS ORDERED: KETOROLAC 30 MG/ML 1ML VIAL IV ONE (19:55)
[2023-04-19] MEDS ORDERED: BACT800T5 PO (21:07)
[2023-04-19] MEDS ORDERED: VALA1TAB5 PO (21:07)
[2023-04-19 21:18] VITALS: BP 126/85; TEMP 97.7; O2SAT 98
== END 2023-04-19 21:19 | disposition home or self-care (01) ==
LOC: M ED 15:09
DX: L03.211 Cellulitis of face (principal); M32.9 Systemic lupus erythematosus, unspecified; Z98.84 Bariatric surgery status; Z86.19 Personal history of other infectious and parasitic diseases; Z79.899 Other long term (current) drug therapy; Z88.0 Allergy status to penicillin; Z88.8 Allergy status to other drugs, medicaments and biological substances; Z91.040 Latex allergy status
CPT/HCPCS: 80048; 85025; 85652; 86140; 87040; 96365; 96375; 99283; J0737; J1100; J1885

== ENCOUNTER 2023-05-29 16:36 | Inpatient (IN) | payer BC, OTHER ==
[~2023-05-29] VITALS: Ht 152.4 cm; Wt 78.1 kg
[~2023-05-29 16:36] MED LIST changes: +VALA1TAB5 PO
[2023-05-29] MEDS ORDERED: PRED10TA2 (16:47)
[2023-05-29] MEDS ORDERED: AMPH1CAP5 (16:47)
[2023-05-29 17:27] LABS: BASO % 0.4 % (0.0-1.0); EOS # 0.1 10^3/uL (0.0-0.5); HEMATOCRIT 41.4 % (36.0-47.0); HEMOGLOBIN 13.1 g/dl (12.0-15.5); LYMPH # 1.1 10^3/uL (1.5-5.0); LYMPH % 11.8 % (24.0-44.0); MEAN CORPUSCULAR HEMOGLOBIN 26.1 pg (27.0-33.0); MEAN CORPUSCULAR HGB CONC 31.6 g/dl (32.0-36.5); MEAN CORPUSCULAR VOLUME 82.6 fl (80.0-96.0); MONO # 0.4 10^3/uL (0.0-0.8); MONO % 4.2 % (2.0-8.0); NEUTROPHILS # 7.6 10^3/uL (1.5-8.5); NEUTROPHILS % 82.2 % (36.0-66.0); PLATELET COUNT, AUTOMATED 232 10^3/uL (150-450); RED BLOOD COUNT 5.01 10^6/uL (4.00-5.40); WHITE BLOOD COUNT 9.3 10^3/uL (4.0-10.0)
[2023-05-29] MEDS: ONDANSETRON 4MG 2ML VIAL IV ONE (18:17)
[2023-05-29] MEDS: KETOROLAC 30 MG/ML 1ML VIAL IV ONE (18:17)
[2023-05-29] MEDS ORDERED: ISOVUE-370 76% 100ML VIAL As Ordered ONE (18:31)
[2023-05-29 18:43] LABS: ERYTHROCYTE SEDIMENTATION RATE 41 mm/hr (0-30)
[2023-05-29] MEDS: CEFTAROLINE FOSAMIL 600 MG in D5W MINI-BAG PLUS 50 ML IV ONE (19:00)
[2023-05-29] MEDS: POTASSIUM CHLORIDE 10MEQ SR TABLET PO ONE (20:07)
[2023-05-29] MEDS: PERCOCET 5MG/325MG TAB PO ONE (20:25)
[2023-05-29] MEDS ORDERED: MOM 30ML SUSPENSION UDC PO PRN (21:20)
[2023-05-29 22:00] VITALS: BP 133/83; TEMP 96.9; O2SAT 96
[2023-05-29] MEDS ORDERED: PATIENT COMMENT (22:03)
[2023-05-29] MEDS ORDERED: PRED10TA2 PO (22:03)
[2023-05-29] MEDS ORDERED: HOME MED LIST COMPLETE! XX SCH (22:05)
[2023-05-29] MEDS: PERCOCET 5MG/325MG TAB PO PRN (23:50)
[2023-05-29] MEDS: KETOROLAC 30 MG/ML 1ML VIAL IV PRN (23:51)
[2023-05-30] MEDS: ONDANSETRON 4MG 2ML VIAL IV PRN (02:18)
[2023-05-30] MEDS: ACETAMINOPHEN TAB 650MG DOSE (2X325MG) PO PRN (02:18)
[2023-05-30 06:00] VITALS: BP 116/56; TEMP 98.4; O2SAT 96
[2023-05-30] MEDS: CEFTAROLINE FOSAMIL 600 MG in D5W MINI-BAG PLUS 50 ML IV SCH (06:13)
[2023-05-30 06:47] LABS: HEMATOCRIT 41.1 % (36.0-47.0); MEAN CORPUSCULAR HEMOGLOBIN 26.1 pg (27.0-33.0); MEAN CORPUSCULAR HGB CONC 31.6 g/dl (32.0-36.5); MEAN CORPUSCULAR VOLUME 82.5 fl (80.0-96.0); PLATELET COUNT, AUTOMATED 186 10^3/uL (150-450); RED BLOOD COUNT 4.98 10^6/uL (4.00-5.40); WHITE BLOOD COUNT 5.2 10^3/uL (4.0-10.0)
[2023-05-30 07:21] LABS: BLOOD UREA NITROGEN 12 MG/DL (9-23); CALCIUM LEVEL 8.7 MG/DL (8.5-10.1); CARBON DIOXIDE LEVEL 27 MMOL/L (20-31); CHLORIDE LEVEL 105 MMOL/L (98-107); CREATININE FOR GFR 0.85 MG/DL (0.55-1.30); GLOMERULAR FILTRATION RATE > 60.0 (>51); GLUCOSE, FASTING 84 MG/DL (60-100); POTASSIUM SERUM 4.4 MMOL/L (3.5-5.1); SODIUM LEVEL 138 MMOL/L (136-145)
[2023-05-30 08:00] VITALS: BP 113/65; TEMP 98; O2SAT 96
[2023-05-30] MEDS: ENOXAPARIN 40MG/0.4ML SYRINGE (J1650 PER 10MG) SC SCH (09:00)
[2023-05-30] MEDS ORDERED: LIFITEGRAST OU PRN (11:05)
[2023-05-30] MEDS ORDERED: traZODone 100 MG TAB PO PRN (11:05)
[2023-05-30] MEDS ORDERED: XIIDRA 5% OU PRN (11:40)
[2023-05-30] MEDS: predniSONE 20 MG TAB PO SCH (14:58)
[2023-05-30 15:28] VITALS: BP 133/65; TEMP 97.1; O2SAT 97
[2023-05-30 22:00] VITALS: BP 90/50; TEMP 97.9; O2SAT 98
[2023-05-30] MEDS: GABAPENTIN 300 MG CAP PO SCH (22:20)
[2023-05-30] MEDS: HYDROXYCHLOROQUINE 200 MG TAB PO SCH (22:20)
[2023-05-30] MEDS: buPROPion **SR TABLET** (ZYBAN) 150MG PO SCH (22:20)
[2023-05-30] MEDS: FOLIC ACID 1MG TAB PO SCH (22:20)
[2023-05-30] MEDS: SERTRALINE 100 MG TAB PO SCH (22:21)
[2023-05-31 04:30] VITALS: BP 115/58; TEMP 97.9; O2SAT 95
[2023-05-31] MEDS: ACYCLOVIR 200 MG CAPSULE PO SCH (08:13)
[2023-05-31] MEDS ORDERED: ADDERALL 30 MG PO SCH (09:00)
[2023-05-31] MEDS: AMPHETAMINE/DEXTROAMPHETAMINE 5 MG *ER* CAPSULE (ADDERALL XR) PO SCH (09:00)
[2023-05-31 09:52] VITALS: BP 94/54; TEMP 98.4; O2SAT 95
[2023-05-31] MEDS: MORPHINE 2 MG/ML 1ML VIAL IV ONE (15:43)
[2023-05-31] MEDS ORDERED: PROHANCE 279.3MG/ML 15ML VIAL As Ordered ONE (17:55)
[2023-05-31 20:00] VITALS: BP 142/64; TEMP 97.6; O2SAT 98
[2023-05-31 21:37] VITALS: BP 130/64; TEMP 97.7; O2SAT 99
[2023-06-01] MEDS ORDERED: UNRESOLVED PATIENT OWN MED ORDER XX SCH (00:01)
[2023-06-01 05:16] VITALS: BP 110/74; TEMP 97.5; O2SAT 99
[2023-06-01 06:28] LABS: BASO # 0.1 10^3/uL (0.0-0.2); BASO % 0.6 % (0.0-1.0); EOS # 0.1 10^3/uL (0.0-0.5); EOS % 1.6 % (0.0-3.0); HEMATOCRIT 40.3 % (36.0-47.0); HEMOGLOBIN 12.9 g/dl (12.0-15.5); LYMPH # 1.7 10^3/uL (1.5-5.0); LYMPH % 21.1 % (24.0-44.0); MEAN CORPUSCULAR HEMOGLOBIN 26.7 pg (27.0-33.0); MEAN CORPUSCULAR VOLUME 83.3 fl (80.0-96.0); MONO # 0.6 10^3/uL (0.0-0.8); MONO % 7.6 % (2.0-8.0); NEUTROPHILS # 5.7 10^3/uL (1.5-8.5); NEUTROPHILS % 68.6 % (36.0-66.0); PLATELET COUNT, AUTOMATED 248 10^3/uL (150-450); RED BLOOD COUNT 4.84 10^6/uL (4.00-5.40); WHITE BLOOD COUNT 8.3 10^3/uL (4.0-10.0)
[2023-06-01 06:46] LABS: BLOOD UREA NITROGEN 13 MG/DL (9-23); CALCIUM LEVEL 8.9 MG/DL (8.5-10.1); CARBON DIOXIDE LEVEL 31 MMOL/L (20-31); CHLORIDE LEVEL 105 MMOL/L (98-107); CREATININE FOR GFR 0.87 MG/DL (0.55-1.30); GLOMERULAR FILTRATION RATE > 60.0 (>51); GLUCOSE, FASTING 89 MG/DL (60-100); POTASSIUM SERUM 3.5 MMOL/L (3.5-5.1); SODIUM LEVEL 140 MMOL/L (136-145)
[2023-06-01 06:55] LABS: ERYTHROCYTE SEDIMENTATION RATE 55 mm/hr (0-30)
[2023-06-01 14:00] VITALS: BP 90/55; TEMP 97.7; O2SAT 93
[2023-06-01] MEDS ORDERED: AMOX875T2 PO (14:25)
[2023-06-01] MEDS ORDERED: DOXY-444 PO (14:25)
[2023-06-01] MEDS ORDERED: ACYC1TAB PO (14:25)
== END 2023-06-01 14:30 | disposition home or self-care (01) | DRG 383 ==
LOC: M ED 16:36 → M ED INP 16:37 → M PED 22:00 → OBSVTOIN 05-31 13:24 → M MS5PR 05-31 21:40
PROVIDERS: ADMIT Internal Medicine; ATTEND Internal Medicine
DX: L03.211 Cellulitis of face (principal); E87.6 Hypokalemia; L93.0 Discoid lupus erythematosus; Z98.84 Bariatric surgery status; Z90.49 Acquired absence of other specified parts of digestive tract; Z79.899 Other long term (current) drug therapy; Z88.0 Allergy status to penicillin; Z88.8 Allergy status to other drugs, medicaments and biological substances; Z91.040 Latex allergy status; Z86.73 Personal history of transient ischemic attack (TIA), and cerebral infarction without residual deficits

== ENCOUNTER 2023-06-01 14:32 | Outpatient (CLI) | payer BC ==
[~2023-06-01 14:32] MED LIST changes: +ACYC1TAB PO; +AMOX875T2 PO; +AMPH1CAP5; +DOXY-444 PO; +PATIENT COMMENT; +PRED10TA2
[2023-06-01 15:05] VITALS: BP 102/58; TEMP 97.7; O2SAT 93
[2023-06-01] MEDS: DALBAVANCIN 1,500 MG in D5W 250 ML IV ONE (15:52)
[2023-06-01 16:00] VITALS: BP 96/51; O2SAT 94
[2023-06-01 17:30] VITALS: BP 113/58; TEMP 97.7; O2SAT 94
== END 2023-06-01 18:14 | disposition home or self-care (01) ==
LOC: M OPCLI5PR 14:32 → M MS5PR 14:32 → M OPCLI5PR 18:14
PROVIDERS: ATTEND Internal Medicine
DX: L03.211 Cellulitis of face (principal); Z88.0 Allergy status to penicillin; Z88.8 Allergy status to other drugs, medicaments and biological substances
CPT/HCPCS: 96365; 96366; J0875

== ENCOUNTER → 2023-10-10 | Outpatient (CLI) | payer BC ==
[~2023-10-10] MED LIST changes: +DOXY-323 PO; +DOXY-440 PO; -DOXY-443 PO; -DOXY-444 PO
== END ==
LOC: M WHC 10:37
PROVIDERS: ATTEND Advanced Practice Midwife
DX: Z12.31 Encounter for screening mammogram for malignant neoplasm of breast (principal); R92.313 Mammographic fatty tissue density, bilateral breasts; Z98.82 Breast implant status

== ENCOUNTER → 2023-10-10 | Outpatient (REF) | payer OTHER ==
[2023-10-10 16:48] LABS: Trichomonas vaginalis (AMP) NOT DETECTED (NEGATIVE)
[2023-10-10 17:14] LABS: GC DNA AMPLIFICATION NEGATIVE (NEGATIVE)
== END ==
LOC: M PLALAB 12:33
PROVIDERS: ATTEND Advanced Practice Midwife
DX: Z01.419 Encounter for gynecological examination (general) (routine) without abnormal findings (principal); N89.8 Other specified noninflammatory disorders of vagina; Z11.3 Encounter for screening for infections with a predominantly sexual mode of transmission

== ENCOUNTER → 2023-11-27 | Outpatient (REF) | LOC: M EMP 09:50 | PROVIDERS: ATTEND Family Medicine | DX: Z11.52 Encounter for screening for COVID-19 (principal) ==

== ENCOUNTER 2024-03-03 10:50 | Emergency (ER) | payer BC ==
[~2024-03-03] VITALS: Ht 152.4 cm; Wt 85.5 kg
[~2024-03-03 10:50] MED LIST changes: -DOXY-323 PO; +DOXY-441 PO; +GABA-1172 PO; -GABA-282 PO
[2024-03-03 11:58] LABS: BASO # 0.1 10^3/uL (0.0-0.2); BASO % 0.8 % (0.0-1.0); EOS # 0.3 10^3/uL (0.0-0.5); EOS % 3.6 % (0.0-3.0); HEMATOCRIT 43.1 % (36.0-47.0); HEMOGLOBIN 13.3 g/dl (12.0-15.5); LYMPH # 1.3 10^3/uL (1.5-5.0); LYMPH % 16.8 % (24.0-44.0); MEAN CORPUSCULAR HEMOGLOBIN 26.4 pg (27.0-33.0); MEAN CORPUSCULAR HGB CONC 30.9 g/dl (32.0-36.5); MEAN CORPUSCULAR VOLUME 85.5 fl (80.0-96.0); MONO # 0.4 10^3/uL (0.0-0.8); MONO % 4.9 % (2.0-8.0); NEUTROPHILS # 5.9 10^3/uL (1.5-8.5); NEUTROPHILS % 73.5 % (36.0-66.0); PLATELET COUNT, AUTOMATED 220 10^3/uL (150-450); RED BLOOD COUNT 5.04 10^6/uL (4.00-5.40)
[2024-03-03 12:17] LABS: ERYTHROCYTE SEDIMENTATION RATE 35 mm/hr (0-30)
[2024-03-03 12:27] LABS: ALBUMIN 3.4 G/DL (3.2-5.2); ALKALINE PHOSPHATASE 98 U/L (35-104); ALT/SGPT 20 U/L (7.0-40); AST/SGOT 20 U/L (<34); BILIRUBIN,DIRECT < 0.1 MG/DL (<0.4); BILIRUBIN,TOTAL 0.4 MG/DL (0.3-1.2); BLOOD UREA NITROGEN 17 MG/DL (9-23); C REACTIVE PROTEIN QUANTITATIV 0.69 MG/DL (<1.0); CALCIUM LEVEL 9.3 MG/DL (8.5-10.1); CARBON DIOXIDE LEVEL 28 MMOL/L (20-31); CHLORIDE LEVEL 108 MMOL/L (98-107); CREATININE FOR GFR 0.89 MG/DL (0.55-1.30); GLOMERULAR FILTRATION RATE > 60.0 (>51); GLUCOSE, FASTING 89 MG/DL (60-100); POTASSIUM SERUM 4.4 MMOL/L (3.5-5.1); SODIUM LEVEL 140 MMOL/L (136-145); TOTAL PROTEIN 7.2 G/DL (5.7-8.2)
[2024-03-03] MEDS: KETOROLAC 30 MG/ML 1ML VIAL IV ONE (13:57)
[2024-03-03] MEDS ORDERED: ISOVUE-370 76% 100ML VIAL As Ordered ONE (14:30)
[2024-03-03] MEDS: CLINDAMYCIN 900 MG in IV 1 EA IV ONE (14:56)
[2024-03-03] MEDS ORDERED: CLEO300C2 PO (15:48)
[2024-03-03 15:51] VITALS: BP 129/79; TEMP 97.5; O2SAT 97
== END 2024-03-03 15:59 | disposition home or self-care (01) ==
LOC: M ED 10:50
DX: H01.005 Unspecified blepharitis left lower eyelid (principal); Z88.0 Allergy status to penicillin; Z88.1 Allergy status to other antibiotic agents; Z91.040 Latex allergy status; Z79.2 Long term (current) use of antibiotics; Z79.1 Long term (current) use of non-steroidal anti-inflammatories (NSAID); Z79.52 Long term (current) use of systemic steroids; Z79.899 Other long term (current) drug therapy
CPT/HCPCS: 70481; 80048; 80076; 85025; 85652; 86140; 87040; 96365; 96375; 99284; J0737; J1885; Q9967

== ENCOUNTER → 2024-10-15 | Outpatient (CLI) | payer BC ==
[~2024-10-15] MED LIST changes: +ACYC-438 PO; -ACYC1TAB PO; +CLEO300C2 PO; +LIFI1DRO4 OU; -XIID5DRO OU
== END ==
LOC: M WHC 09:50
PROVIDERS: ATTEND Advanced Practice Midwife
DX: Z12.31 Encounter for screening mammogram for malignant neoplasm of breast (principal); Z13.820 Encounter for screening for osteoporosis; M81.0 Age-related osteoporosis without current pathological fracture; M85.89 Other specified disorders of bone density and structure, multiple sites; R92.313 Mammographic fatty tissue density, bilateral breasts; Z98.82 Breast implant status

== ENCOUNTER → 2024-12-23 | Outpatient (CLI) | payer BC | LOC: M SOG 07:24 | PROVIDERS: ATTEND Orthopaedic Surgery | DX: M25.532 Pain in left wrist (principal) ==

== ENCOUNTER → 2025-01-21 | Outpatient (CLI) | payer BC | LOC: M RAD 15:23 | PROVIDERS: ATTEND Physician Assistant | DX: S63.8X2A Sprain of other part of left wrist and hand, initial encounter (principal); Y93.9 Activity, unspecified; Y92.9 Unspecified place or not applicable ==

== ENCOUNTER → 2025-03-11 | Outpatient (CLI) | payer BC ==
[2025-03-11 14:51] LABS: ALT/SGPT 27.0 U/L (7.0-40); AST/SGOT 27.0 U/L (<34); CALCIUM LEVEL 9.4 MG/DL (8.5-10.1); CARBON DIOXIDE LEVEL 29.0 MMOL/L (20-31); CHLORIDE LEVEL 103.0 MMOL/L (98-107); CREATININE FOR GFR 0.89 MG/DL (0.55-1.30); GLOMERULAR FILTRATION RATE 77.5 (>51); POTASSIUM SERUM 4.0 MMOL/L (3.5-5.1); SODIUM LEVEL 142.0 MMOL/L (136-145)
== END ==
LOC: M PLALAB 10:04
PROVIDERS: ATTEND Advanced Practice Midwife
DX: M81.0 Age-related osteoporosis without current pathological fracture (principal)